=== PATIENT | male | born 1960 | race Caucasian/White ===

== ENCOUNTER → 2019-03-09 14:44 | Outpatient (CLI) | payer BC, SELFPAY ==
[2019-03-09 17:21] LABS: Erythrocyte Sedimentation Rate < 1 mm/hr (0-20)
[2019-03-09 17:32] LABS: CRP < 2.90 mg/L (0.0-3.0); T4 Free Direct 0.94 ng/dL (0.76-1.46); Thyroid Stim Hormone (TSH) 0.91 uIU/mL (0.358-3.74)
== END ==
PROVIDERS: Family Provider Family Medicine; PCP Family Medicine; Visit Provider Family Medicine
DX: M13.0 Polyarthritis, unspecified (principal); F32.9 Major depressive disorder, single episode, unspecified
CPT/HCPCS: 36415; 84439; 84443; 85652; 86140

== ENCOUNTER → 2019-03-12 07:19 | Outpatient (CLI) | payer BC, SELFPAY ==
--- NOTE | 2019-03-12 07:24 | RAD_ITS ---
STUDY: X-RAY - CERVICAL SPINE REASON FOR EXAM: Male, 58 years old. Neck pain and stiffness. TECHNIQUE: 5 view(s) of the cervical spine were obtained including oblique views. COMPARISON: None FINDINGS: Normal anterior atlantoaxial articulation. Normal odontoid process. There is straightening of the normal cervical lordosis. Mild degree of anterior spondylosis at the C4-C5 C5-C6 levels. Normal disc space heights. Normal visualized intervertebral neuroforamina. There are atherosclerotic vascular calcifications of the right carotid artery. RAD/Cerv Spine 4 or 5 Views IMPRESSION: Straightening of the normal cervical lordosis. Mild degree of degenerative changes. Electronically Signed: Antony Whitfield, at 14:42 EDT , Service support ,
== END ==
PROVIDERS: Family Provider Family Medicine; PCP Family Medicine; Referring Provider Family Medicine; Visit Provider Family Medicine
DX: M43.02 Spondylolysis, cervical region (principal)
CPT/HCPCS: 72050

== ENCOUNTER 2019-03-14 14:56 | Emergency (ER) | payer BC, SELFPAY ==
[2019-03-14 14:57] VITALS: BP 125/80; PULSE 57; RESP 16; TEMP 36.5; O2SAT 97; BMI 20.2
--- NOTE | 2019-03-14 15:25 | ED.VISSUMM ---
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 Patient states since Friday he awoke Friday morning with pain in his posterior lower neck he has since developed some tingling in his left. He saw his primary care physician's office they started him on Zoloft and Celebrex and prednisone. He denies any weakness in his hand. He is never had neck problems or neck surgery Physical Examination: Well-appearing middle-aged male. Vital signs are stable afebrile. He is in no distress. H EENT 1 neck pain but not reproducible at the base of his neck. No significant toney-cervical or thoracic soft tissue tenderness. No muscle spasm. He has full flexion extension of his neck and full rotation. Lungs clear to auscultation. Heart regular rhythm no murmur. Chest wall nontender. Abdomen soft nontender. Extremities moves all 4. Normal motor strength. He describes tingling in his fingertips of his left hand. Strong radial pulse. 5 bulk delivery driver strength. No muscular wasting or atrophy. Neurologically he is awake and alert. Subjective tingling in his left hand. Test Results: None Emergency Department Course and Treatment: Patient most likely has a lower cervical disc. He is already on Celebrex and prednisone by his primary care physician's office. I instructed him to follow-up if is not improving he may need an MRI of the cervical spine. He will be written for [facility] for pain. Treatment Plan: [place] 20 no refill. Follow-up in PCPs office for possible MRI of the cervical spine. Disposition: dc Impression: Acute neck pain (rule out inflamed cervical disc) This note was generated with [employer] dictation software. It may contain incorrect words, spelling, and punctuation that were not noted in review of the chart prior to signing ED Disposition - Plan for ED Patient: Referrals: Lam Munoz [Primary Care Provider] -
[2019-03-14] MEDS: HYDROcodone Bitartrate/Apap 5/325 Tablet PO (15:30)
[2019-03-14 15:31] VITALS: RESP 16
--- NOTE | 2019-03-14 15:33 | DCINST.ED_ITS ---
ED Disposition - Plan for ED Patient: Disposition: Home or Assisted Living Instructions: NECK PAIN, No Trauma Prescriptions: Hydrocodone Bitart/Apap 5-325 [Thompson 5MG-325MG] 1 tab PO Q4H PRN PRN #20 tab PRN Reason: Pain Prescription Printed Referrals: Lam Munoz [Primary Care Provider] - As soon as possible Additional Instructions: Continue current medications. My concern is this is a cervical disc that is inflamed. If not improving or if this is getting worse you may need an MRI. Follow-up with your doctors office.
== END 2019-03-14 16:08 | disposition home or self-care (01) ==
LOC: ED 15:51
PROVIDERS: Emergency Provider Emergency Medicine; Family Provider Family Medicine; PCP Family Medicine
DX: M54.2 Cervicalgia (principal); M50.90 Cervical disc disorder, unspecified, unspecified cervical region; M46.96 Unspecified inflammatory spondylopathy, lumbar region
CPT/HCPCS: 99282

== ENCOUNTER → 2019-03-29 10:07 | Outpatient (CLI) | payer BC, SELFPAY ==
[2019-03-29 09:51] VITALS: BMI 20.2
--- NOTE | 2019-03-29 10:10 | RAD_ITS ---
STUDY: X-RAY - LEFT SHOULDER REASON FOR EXAM: Shoulder pain. TECHNIQUE: 4 view(s) of the shoulder. COMPARISON: None. FINDINGS: Normal glenohumeral articulation. There is mild acromioclavicular arthrosis. Normal acromion. Normal humeral head and visualized proximal humerus. The soft tissue structures are unremarkable. Normal visualized pulmonary apex. RAD/Shoulder min 2 Views IMPRESSION: Mild acromioclavicular arthrosis. Electronically Signed: Felipe Diamond MD at 13:08 EDT Tel , Service support ,
== END ==
PROVIDERS: Family Provider Family Medicine; PCP Family Medicine; Referring Provider Physician Assistant; Visit Provider Physician Assistant
DX: S49.92XA Unspecified injury of left shoulder and upper arm, initial encounter (principal)
CPT/HCPCS: 73030

== ENCOUNTER 2019-04-16 13:30 | Outpatient (RCR) | payer BC, SELFPAY ==
--- NOTE | 2019-03-17 15:23 | HP.PTEVAL ---
Patient's Visit Information MIMI REGAN is a 58 year old M referred to Physical Therapy by Lam Munoz MD with a diagnosis of spondylosis. Date of Evaluation: 03/17/19 Physical Therapist: CLAUDIA Ndiaye - Visit Plan Frequency: 2x /Week Duration: 6 Weeks Plan: 2X/ week for 4-6 weeks for centralization of symptoms, postural exercises with HEP and modalities as needed. - Subjective Findings: Pt reports that he woke up one morning about 9 days ago and he had neck and L arm pain. Pt is R handed. He was given oxy by the ER which does not touch it and muscle relaxor by his Dr. He did have an x-ray but it did not show anything. Pt is R handed and is off work right now. He reports that he is not able to find a comfortable position and is in a lot of pain. He has pain on the L side of his neck, down to his L shoulder and tingling and numbness in his fingers. He is not sleeping at night and can not lay down due to the pain. He feels that he has less pain when he is up walking around. Pt reports that he sleeps on the couch arm rest with a pillow. 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 C'spine AROM: flex 50%, ext 25%, SB B 75%, Rot B 75%. UE AROM: full. UE MMT: R shld flex 4+/5 and L 4-/5, R shld abd 4+/5 and L 4-/5, R ER 4+/5 and L 3+/5 and R IR 4+/5 and L 4/5. Pt is able to do a chin tuck but it increases his pain down his arm in sitting. In supine the pt is able to do a chin tunck with a towel under his head, the pain is less but not by much. Took the pt's head into extrememe flexion and slowly lowered his head to lesser amount of flexion.... seemed to help reduce the pain a little. As soon as the pt sat up, the pain came back down the L shoulder and arm. Observation: scapular muscle wasting??? - Goals Goal 1:: HEP Goal Time Frame: 4-6 Weeks Goal 2:: Decrease L shoulder, neck and arm pain to 3/10 with ADL's Goal Time Frame: 4-6 Weeks Goal 3:: Be able to lye down at night and sleep at night for at least part of the night. Goal Time Frame: 4-6 Weeks Goal 4:: Increase L shoulder strength by 1/2 muscle grade ( at time of the eval: UE MMT: R shld flex 4+/5 and L 4-/5, R shld abd 4+/5 and L 4-/5, R ER 4+/5 and L 3+/5 and R IR 4+/5 a).nd L 4/5 Goal Time Frame: 4-6 Weeks - Rehabilitation Potential Rehabilitation Potential: Good - Anticipated Interventions Patient/Client Instruction: Educate patient on: Condition, Plan of Care For the Purpose of:: To decrease pain, To decrease swelling/inflammation, To increase ROM, To improve nutrient delivery to tissue, To improve muscle performance and motor function, To improve ability to perform ADL's, To increase tolerance to activity/condition/position, To improve performance and independence with ADL's, To decrease level of supervision to perform tasks, To improve ability of physical actions for home/community/work/leisure, To improve health of tissue, To decrease soft tissue restriction, To increase flexibility/ROM Therapeutic Exercise to Include: Strength training, Postural training, Flexibilty training, Passive ROM, Active ROM, Scapular Strength/Stabilization For the Purpose of:: To decrease pain, To decrease swelling/inflammation, To increase ROM, To improve nutrient delivery to tissue, To improve muscle performance and motor function, To improve ability to perform ADL's, To increase tolerance to activity/condition/position, To improve performance and independence with ADL's, To improve health of tissue, To decrease soft tissue restriction, To increase flexibility/ROM Manual Therapy Techniques to Include: Mobilization, Passive ROM, Soft tissue mobilization For the Purpose of:: To decrease pain, To increase ROM, To improve nutrient delivery to tissue, To improve muscle performance and motor function, To improve ability to perform ADL's, To increase tolerance to activity/condition/position IF ES: Yes Cryotherapy (ice pack, ice massage): Yes Thermo therapy (hot pack): Yes Ultrasound (thermal/non thermal): Yes For the Purpose of:: To decrease pain, To decrease swelling/inflammation, To improve nutrient delivery to tissue Thank you for the opportunity to evaluate your patient. For Medicare and Medicare HMO plans, please review the plan of care and approve it. It will need to be FAXED BACK to us at [phone] for Medicare purposes. For Medicare only, by signing this I certify the plan of care. Please let me know if there are questions or concerns regarding this plan of care. Physician Signature: Date:
--- NOTE | 2019-04-16 13:50 | HP.PTDCSUM ---
HP - PT D/C Summary It has been my pleasure to treat MIMI REGAN under orders from Lam Munoz MD, for the diagnosis of spondylosis for a total of 7 visit(s). Discharge Date: 04/16/19 Please see the following information for a summary of their discharge status. - Subjective Subjective: Pt is no better. He is doing a little better with sleeping. Pt then reports that pain is 30-40% better maybe. He sees Dr Montemayor next week. He wants an MRI. He can only sleep with pain meds. Pt feels every bump in the car and can not travel very far because of the pain. - Pain neck pain Pain Intensity (Out of 10): 9 L arm pain Pain Intensity (Out of 10): 9 - Overall Improvement % Improvement: 40 - Objective Objective/Function: UE MMT: remains the same. He is only able to lye down for short period sof time. Not sleeping well. C-spine AROM: UE AROM: famktey10%, Ext 75%, R SB 50% and L 75%, Rotation R 1005 and L 75% - Goals Goal 1:: HEP Goal Progress: Goal Met Goal 2:: Decrease L shoulder, neck and arm pain to 3/10 with ADL's Goal Progress: Not Progressing Goal 3:: Be able to lye down at night and sleep at night for at least part of the night. Goal Progress: Progressing Goal 4:: Increase L shoulder strength by 1/2 muscle grade ( at time of the eval: UE MMT: R shld flex 4+/5 and L 4-/5, R shld abd 4+/5 and L 4-/5, R ER 4+/5 and L 3+/5 and R IR 4+/5 a).nd L 4/5 Goal Progress: Not Progressing - Plan Plan: DC PT. Physician assessment/ Dr Montemayor vs MRI - D/C Information Discharge Comments: DC PT to physician If there are questions or concerns regarding this patient's physical therapy, please feel free to call me at [phone]. Thank you for the referral of this patient. Sincerely, Monique العلي, MPT
== END 2019-04-16 19:00 | disposition home or self-care (01) ==
LOC: PT 13:30
PROVIDERS: Family Provider Family Medicine; PCP Family Medicine; Visit Provider Family Medicine
DX: M43.02 Spondylolysis, cervical region (principal)
CPT/HCPCS: 97014; 97035; 97110; 97140; 97162; 97530; G0283

== ENCOUNTER → 2019-05-04 10:36 | Outpatient (CLI) | payer BC, SELFPAY ==
[2019-04-09 08:07] VITALS: BMI 20.2
--- NOTE | 2019-05-04 10:57 | RAD_ITS ---
STUDY: X-RAY - ORBITS REASON FOR EXAM: Male, 59 years old. This study is being performed as a clearance examination for exclusion of orbital metal, prior to the performance of an MRI examination. TECHNIQUE: 2 view(s) of the orbits were obtained. COMPARISON: None. FINDINGS: Normal bilateral orbits without a metallic orbital foreign body. Normal visualized facial bones. Normal paranasal sinuses. The soft tissue structures are unremarkable. RAD/Orbits for Foreign Body IMPRESSION: No demonstrated metallic orbital foreign body. The patient is cleared for an MRI examination. Electronically Signed: Antony Whitfield, at 11:13 EDT , Service support ,
--- NOTE | 2019-05-04 11:30 | MRI_ITS ---
STUDY: MRI CERVICAL SPINE WITHOUT CONTRAST REASON FOR EXAM: Male, 59 years old. Neck pain radiating to left arm TECHNIQUE: Standardized fat and water weighted pulse sequences were obtained in the sagittal and axial planes. COMPARISON: Cervical spine March 12, 2019 FINDINGS: Normal foramen magnum and brainstem-cervical cord junction. Normal craniovertebral junction. Normal anterior atlantoaxial articulation. Normal odontoid process. Decreased cervical lordosis. Normal vertebral bodies and posterior osseous elements. C2-3: Normal endplates. Normal disc height, signal and morphology. Normal central canal and intervertebral neural foramina. C3-4: Normal endplates. Normal disc height, signal and small central/left paracentral disc protrusion. There is mild narrowing of the central canal and impingement upon the ventral surface of the cord. Normal bilateral neuroforamina. C4-5: Normal endplates. Normal disc height, signal and small central disc protrusion mildly narrowing the central canal and impinging upon the cord. Normal bilateral neuroforamina C5-6: Normal endplates. Normal disc height, signal and minor left paracentral/posterolateral disc protrusion. Normal central canal and minor left neural foraminal encroachment. C6-7: Normal endplates. Normal disc height, signal and minor annular bulge with large left posterolateral disc extrusion with superior migration of the disc fragment narrowing the spinal canal on the left and severely narrowing the left nerve root foramen entry zone C7-T1: Normal endplates. Normal disc height, signal and morphology. Normal central canal and intervertebral neural foramina. Normal cervical cord. Normal visualized soft tissue structures. MRI/Spine Cervical (Routine) IMPRESSION: No evidence for acute fractures fixation. Multilevel spinal stenosis secondary to disc disease most severe on the left at C6-7 and to a lesser extent C5-6 Electronically Signed: Herberth Solomon MD at 18:44 EDT , Service support ,
== END ==
PROVIDERS: Family Provider Family Medicine; PCP Family Medicine; Referring Provider Anesthesiology Pain Medicine; Visit Provider Anesthesiology Pain Medicine
DX: M54.9 Dorsalgia, unspecified (principal); M79.603 Pain in arm, unspecified
CPT/HCPCS: 70030; 72141

== ENCOUNTER 2019-06-09 09:39 | Outpatient (RCR) | payer BC, SELFPAY ==
[2019-04-09 08:07] VITALS: BMI 20.2
--- NOTE | 2019-06-09 14:27 | HP.OTFCE_ITS ---
HP OT Functional Capacity Eval - Task Lift Floor (Occasional 1-33% of Day): 60lb Floor (Frequent 34-66% of Day): 30lb Floor (Constant 67-100% of Day): 12lb Floor PDL: Medium Knee (Occasional 1-33% of Day): 60lb Knee (Frequent 34-66% of Day): 30lb Knee (Constant 67-100% of Day): 12lb Knee PDL: Medium Waist (Occasional 1-33% of Day): 60lb Waist (Frequent 34-66% of Day): 30lb Waist (Constant 67-100% of Day): 12lb Waist PDL: Medium Shoulder (Occasional 1-33% of Day): 50lb Shoulder (Frequent 34-66% of Day): 25lb Shoulder (Constant 67-100% of Day): 10lb Shoulder PDL: Medium Overhead (Occasional 1-33% of Day): 30lb Overhead (Frequent 34-66% of Day): 15lb Overhead (Constant 67-100% of Day): Negligible Overhead PDL: Light Comments: 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 - Work Activity/Posture Bending: Frequent Ability (34-66% of day) Squatting: Frequent Ability (34-66% of day) Kneeling: Frequent Ability (34-66% of day) Reaching out: Constant Ability (67-100% of day) Reaching up: Constant Ability (67-100% of day) Sitting: Constant Ability (67-100% of day) Walking: Constant Ability (67-100% of day) Standing: Constant Ability (67-100% of day) - Reference Duration Sedentary Sedentary Light Light Light Medium Medium Medium Heavy Very Heavy Heavy Occasional (0-33% of day) Frequent (34-66% of day) Constant (67-100% of day) 10 # Negligible Negligible 15 # 8 # Negligible 20 # 10# Negli. 35 # 18 # 7 # 50 # 25 # 10 # 75 # 100 # >100 # 38 # 50 # >50 # 15 # 20 # >20 # - Patient Information Height: 5 ft 6 in Weight:: 61.235 kg Hand Dominance: Right - Medical History Medical History Including Restrictions: Pt reports the following PMHx: R broken leg 2014 from accident, back pain, neck pain, arthritis, leg pain, arm pain, injections in cervical spine, lower back, L shoulder. - Diagnoses Diagnoses: Pt reports the following PMHx: R broken leg 2015 from accident, back pain, neck pain, arthritis, leg pain, arm pain, injections in cervical spine, lower back, L shoulder. - Symptoms Symptoms: Pt reports the followng symptoms: lower back aching, under arm pain L arm, mild ache, numbness L 4 digits fingertips 2-5. - Pain Pain: Pt states pain: lower back pain 5-10 pending on movement, left arm 1-3 pain aching. 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 - ADLS ADLS: Pt lives in mobile home, lives w/ spouse. Pt has cat able to care for independently. Pt independent with BADLs/IADLs. Pt drives. Pt has std walker and crutches available but doesn't use it. Pt has middle school director available but doesn't use it. Tub/shower with HHS. Std toilet seats. Sleeps on couch. Pt gets groceries and carries them into house independently. Pt reports cLeaning out shed and doing okay with that, mows independently with no difficulties. - Physical Examination ROM: BUE WFL, BLE WFL Strength: BUE 4/5 BLE 4/5 Right Picture Frame Maker Strength Average: 66.66 Left Picture Frame Maker Strength Average: 78.33 Right Lateral Pinch Average: 12.66 Left Lateral Pinch Average: 11.00 Right Tripod Pinch Average: 11.66 Left Tripod Pinch Average: 13.33 Sensation: Pt states numbness L finger tips 2-5. Monofilament 2.83 L hand. Fine Motor: Pt states no difficulty with fine motor skills Balance: Pt states no falls or loss of balance. Pt demo good righting reactions and no loss of balance when tested. - Non Material Handling Activities Bending: Pt able to bend down to floor reaching with R hand. 1x, 10x, 10x fast. Squatting: Pt able to complete full squats w/o upper body support 1x, 10x, 10x fast. Kneeling: Pt able to complete kneels using L and R legs to kneel with R arm support on desk 1x, 10x, 10x fast. Reaching out/up: Pt able to reach up and out to left and right sides 1x, 10x, 10x fast. Walkin min walk test completed no c/o pain, no rest break needed. Standing: Pt able to stand for several minutes at a time w/o seated rest break. Sitting: Pt able to sit for 20 min beginning of evaluation w/o diffiuclty or rodrigues ving to move around in chair for increased comfort. Climbing Stairs: Completed flight of 10 steps reciprocal movement not holding onto handrails. No loss of balance noted. - Dynamic Occasional Lifting Capacity Floor Lift: 60lb max Knee Lift: 60lb max Waist Lift: 60lb max Shoulder Lift: 50lb max Overhead Lift: 30lb max Carryinlb, 20ft and 60lb 20ft, states he thinks he could maybe do 70lb but doesn't want to push it. 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
== END 2019-06-09 19:00 | disposition home or self-care (01) ==
LOC: OT 09:39
PROVIDERS: Family Provider Family Medicine; PCP Family Medicine; Referring Provider Anesthesiology Pain Medicine; Visit Provider Anesthesiology Pain Medicine
DX: M54.9 Dorsalgia, unspecified (principal); M54.2 Cervicalgia; M79.606 Pain in leg, unspecified; M79.603 Pain in arm, unspecified
CPT/HCPCS: 97165; 97166; 97167

== ENCOUNTER → 2019-07-22 09:53 | Outpatient (CLI) | payer BC, SELFPAY ==
[2019-03-29 09:51] VITALS: BMI 20.2
[2019-04-09 08:07] VITALS: BMI 20.2
--- NOTE | 2019-07-22 18:12 | NEURO_ITS ---
NCS and/or EMG Patient Report HPI: Patient is a 59-year-old male who presented with the complaints of the left hand numbness from 2nd-5th digits. Patient sometimes have difficulty gripping things. Patient does not have a history of diabetes Physical Exam: Decreased sensation to light touch in the left hand fingers, especially in 2nd- 5th finger around tips. No tenderness of the left wrist noted. Findings: 1. Normal nerve conduction studies of the left upper extremity. 1. Normal needle examination of the left upper extremity. Impression: 1. Normal EMG/NCS of the left upper extremity. Recommendation: Agree correlation and appropriate work-up was recommended.
== END ==
PROVIDERS: Family Provider Family Medicine; PCP Family Medicine; Referring Provider Physician Assistant; Visit Provider Physician Assistant
DX: G54.0 Brachial plexus disorders (principal)
CPT/HCPCS: 95886; 95909

== ENCOUNTER 2021-09-12 11:40 | Outpatient (CLI) | payer BC, SELFPAY ==
--- NOTE | 2021-09-12 13:36 | NEURO ---
NCS and/or EMG Patient Report Ordering Doctor: Herberth Granados DATE OF SERVICE: 09/12/21 Indication: Approximately two year history of numbness affecting digits 2-4 of the left hand. No clear associated weakness. History of mechanical neck pain, but no current radicular symptoms. Findings: Nerve conduction studies were performed in the left upper extremity. The left median motor study recording the abductor pollicis brevis showed a normal amplitude, normal distal latency and normal conduction velocity. The left ulnar motor study recording the abductor digiti minimi showed a normal amplitude, normal distal latency and normal conduction velocity. No conduction block or focal slowing was present across the elbow. The left median sensory response recording digit two showed a normal amplitude, latency and conduction velocity. The left ulnar sensory response recording digit five showed a normal amplitude, latency and conduction velocity. The left radial sensory response recording over the extensor snuff box showed a normal amplitude, latency and conduction velocity. Left median ulnar lumbrical / interosseous motor latencies showed no significant difference. Needle EMG of the left upper extremity and cervical paraspinal muscles was performed. No denervation was seen in any muscle. No quiet recording field was obtained in the paraspinals. The triceps revealed motor units which were large amplitude and long duration with normal recruitment. The flexor carpi radialis revealed motor units which were borderline large with normal recruitment. All other examined motor unit morphology, activation and recruitment patterns were normal. Impression: This is a mildly abnormal study. There is electrophysiologic evidence suggestive of a mild, chronic, left C7 radiculopathy. There is no active denervation to suggest ongoing axonal loss. In addition, there was no electrophysiologic evidence of a superimposed median or ulnar entrapment neuropathy in the left upper extremity. Ozzie Calderon D.O. Multi Select Codes Neurology Neurology Interp Codes: 35696-62 Musc test done w/n test comp (interp) and 52637-37 Nrv cndj test 7-8 studies (interp)
== END 2021-09-12 23:59 | disposition short-term general hospital (02) ==
LOC: PSN 11:43
PROVIDERS: PCP Family Medicine; Referring Provider Orthopaedic Surgery; Visit Provider Orthopaedic Surgery
DX: R20.2 Paresthesia of skin (principal)
CPT/HCPCS: 95886; 95910

== ENCOUNTER 2021-11-08 05:54 | Inpatient (IN) | payer BC, SELFPAY ==
--- NOTE | 2021-10-30 09:06 | RAD_ITS ---
STUDY: X-RAY CHEST REASON FOR EXAM: Male, 61 years old. Preop for back surgery TECHNIQUE: PA and lateral views of the chest. COMPARISON: None. FINDINGS: The lungs are clear and expanded. There is no demonstrated pleural abnormality. Normal size heart. Normal mediastinum and joel. Normal visualized pulmonary arteries. Normal visualized aortic arch and descending thoracic aorta. Normal visualized thoracic spine. Normal visualized ribs, clavicles, and shoulders. There is no demonstrated abnormality of the visualized soft tissue structures of the upper abdomen. RAD/Chest PA and Lateral IMPRESSION: Normal x-ray examination of the chest. Electronically Signed: Fer Shearer MD at 17:01 EST ,
--- NOTE | 2021-10-30 09:09 | EKG12_ITS ---
Test Reason : PRE OP Blood Pressure : / mmHG Vent. Rate : 056 BPM Atrial Rate : 056 BPM P-R Int : 144 ms QRS Dur : 088 ms QT Int : 416 ms P-R-T Axes : 043 040 040 degrees QTc Int : 401 ms Sinus bradycardia Otherwise normal ECG Confirmed by JEN OVIEDO, TRAV ([id number]), senior technical editor TIFF YO ([id number]) on 11/01/2021 1:17:05 PM Referred By: CASIE Confirmed By:TRAV LI MD
[2021-10-30 10:49] LABS: Absolute Lymphocyte Count 1.33 X10^3/uL (0.83-4.51); Absolute Neutrophil Count 2.1 X10^3/uL (2.0-7.7); Basophil# 0.03 X10^3/uL; Basophil% 0.8 % (0-1); Eosinophil# 0.06 X10^3/uL; Eosinophils% 1.5 % (0-5); Hematocrit 44.6 % (40-54); Hemoglobin 14.7 g/dL (13.0-16.5); Lymphocyte # 1.33 X10^3/ul (0.83-4.51); Lymphocyte % 33.9 % (19-41); Mean Corpuscular Hgb 30.2 pg (27.0-32.0); Mean Corpuscular Volume 91.6 fL (80-94); Mean Platelet Vol. 10.5 fl (6.2-12.0); Monocyte# 0.42 X10^3/uL; Monocyte% 10.7 % (0-10); NRBC Flagged by Analyzer 0 % (0-5); Neutrophil # 2.07 X10^3/uL (2.7-7.7); Neutrophil % 52.8 % (47-70); Platelet Count 171 K/mm3 (150-450); RBC Distribution Width CV 12.6 % (11.6-14.6); RBC Distribution Width SD 42.4 fl (35.1-43.9); Red Blood Count 4.87 M/mm3 (4.6-6.2); White Blood Count 3.9 K/mm3 (4.4-11.0)
[2021-10-30 10:51] LABS: International Normalized Ratio 1.1; Prothrombin Time (Protime)PT. 13.1 SECONDS (11.7-14.9)
[2021-10-30 10:52] LABS: Partial Thromboplast Time 28.3 Seconds (24.1-36.2)
[2021-10-30 11:01] LABS: Hemoglobin A1c 5.1 % (3.8-5.6)
[2021-10-30 11:09] LABS: Anion Gap 2 (5-15); BUN 23 mg/dL (7-18); BUN/Creat Ratio 27.6 RATIO (10-20); Calcium,Total 9.1 mg/dL (8.5-10.1); Chloride 105 mmol/L (98-107); Creatinine, Serum 0.83 mg/dL (0.70-1.30); EST Glomerular Filtration Rate 100 mL/min (>60); Est Glom Filt Rate - Afr Amer 121 mL/min (>60); Glucose 87 mg/dL (74-106); Potassium 3.9 mmol/L (3.5-5.1); Sodium Level 139 mmol/L (136-145)
[2021-11-08] VITALS (13 sets, daily range): BP systolic 108–148; BP diastolic 62–95; PULSE 57–68; RESP 16–18; TEMP 35.8–37; O2SAT 98–100; BMI 22.0; BMI 21.3
[2021-11-08] MEDS: Lactated Ringers 1,000 ML 15 ML IV ×3 (06:41→12:00)
--- NOTE | 2021-11-08 07:13 | DS.PCM_ITS ---
Providers Date of Admission: 11/08/21 Primary Care Physician: Lam Munoz Reason For Visit: LUMBAR 5- SACRAL 1 POSTERIOR LUMBAR INTERBODY FUSI Diagnosis Discharge Diagnosis (1) Lumbar stenosis: Status: Acute Code(s): M48.061 - Spinal stenosis, lumbar region without neurogenic claudication Medications at Discharge Home Medications omeprazole 10 mg capsule,delayed release 20 mg PO DAILY 08/23/19 gabapentin 100 mg PO DAILY 10/26/21 hydrocodone-acetaminophen 1 tab PO Q6H 7 Days #28 tab 11/08/21 Hospital Course Operations - (L5-S1 posterior lumbar interbody fusion, decompression, posterior spinal fusion with instrumentation, use of allograft) Summary of Care Provided Minutes Spent on Discharge: 15 Hospital Course: The patient is a 61-year-old male who underwent L5-S1 posterior lumbar interbody fusion, decompression, posterior spinal fusion with instrumentation, use of allograft on 11/08/2021. He was subsequently admitted. The hospitalist was consulted for medical management. The patient progressed well. His pain was well controlled and he was mobilizing well. No significant medical issues were reported. His drain was pulled on postoperative day 2 and he was subsequently discharged home on 11/10/21 to follow-up with Dr. Granados in 3 weeks Physical Exam Const alert, oriented x3 and no apparent distress General Appearance: cooperative, comfortable and well kempt HEENT head/scalp atraumatic Eyes EOMs intact bilaterally and conjunctivae normal Neck full ROM General: normal visual inspection Chest inspection of chest normal Resp normal respiratory effort and normal air movement Cardio regular rate and regular rhythm Peripheral Pulses: pulses 2+ throughout GI soft to palpation, non-tender and non-distended Back/Spine Back/Spine Narrative: Dressing clean dry and intact. Incision well approximated with interrupted sutures in place. No tenderness erythema drainage or fluctuance Cervical Spine: cervical ROM normal Thoracic Spine / Upper Back: normal to inspection Lumbar Spine / Lower Back: normal to inspection Extremity normal to inspection, full ROM, normal capillary refill, no clubbing, cyanosis or edema and no calf tenderness Peripheral Pulses: Yes pulses 2+ throughout Skin no rashes or lesions noted General Skin Exam: no breakdown Neuro oriented x3, CN's II-XII intact bilaterally, moves all extremities, no focal motor deficits, no sensory deficits noted and deep tendon reflexes 2+ bilaterally Motor Exam: strength 5/5 throughout and muscle tone normal throughout Weight / BMI Weight Weight: 136 lb 10.986 oz Body Mass Index (BMI) 22.0 ABG / Lab / Microbiology Data Result Diagrams: 10/30/21 09:26 10/30/21 09:26 Microbiology: Microbiology 11/07/21 13:10 Interface Orders SARS-CoV-2 Antigen (Rapid) - Final D/C Instructions Discharge Diet: No restrictions Discharge Activity: - (See discharge instructions) Lifting Restricted to (Lbs): 5 Call your doctor if your incision/area has: Continuous Slow Oozing, Sudden Increased Bleeding, Increased Pain/ Swelling, Increased Redness, Foul Smelling Discharge and Swelling at the incision site Call your doctor if you observe: Fever of 101 or Higher, Coldness, Increased Pain, Numbness or Tingling, Change in Color, Inability to urinate, Inability to have a bowel movement, Using more than 1 pad per hour, Shortness of breath, Dizziness, Fainting spells, Swelling in the ankles, Chest pain, Prolonged hiccupping, Increased palpitations (irregular heartbeat), Calf discomfort and Uncontrolled pain Change Dressing in: Daily Cleanse incision/area with: Do not get Incision Wet and Keep Dressing Clean & Dry Additional Dressing/Incision Instructions: Daily dry dressing changes with iodine to incision Additional Instructions: See attached discharge instructions Please Follow Up With: Darwin When: 3 weeks Meaningful Use Info Meaningful Use Diagnoses (Choose all that apply): None applicable Discharge Plan Admission Admit Date/Time: 11/08/21 05:54 Attending Provider: Bhargav Alexandre Primary Care Provider: Lam Munoz Consulting Providers: Katerin Sullivan ; Rohan Silva Instructions Additional Instructions / Restrictions: 1. During your procedure, you received sedation through your IV. Please follow these instructions for the next 24 hours: Do not drive a motor vehicle, do not drink any alcoholic beverages, and do not sign any legal documents or make personal or business decisions. A responsible adult should stay with you at least 6 hours after the procedure. 2. Keep your surgical site/incision clean and the dressing dry and intact. You may use an ice pack at the surgical site to reduce any swelling or discomfort. 3. Monitor the incision site for any signs or symptoms of infection. Watch for redness, excessive swelling or drainage, or continued pain at the incision site after 3 days. Contact your physician immediately for a fever, chills or a temperature of 101.5? F or greater. 4. Take your medication exactly as prescribed by your physician. Do not attempt to wean yourself off any of your medications even though your pain is improving. This process needs to be carefully monitored by your doctor. Take any an tibiotics prescribed exactly as directed and until they are gone. 5. Avoid stretching, bending, pulling, twisting or any sudden movements. Do not bend or twist at the waist. 6. No lifting greater than 5 pounds. 7. Do not operate a motor vehicle, equipment or a power tool while taking pain medication 8. Do not have any manipulation done by a chiropractor or any other physician without first consulting with the surgeon 9. Please contact our office if you are even scheduled for a CT scan or an MRI. 10. Please call us if you have any questions, problems or concerns. Follow-up with Dr. Granados in 3 weeks Discharge Orders/Prescriptions Prescriptions: New hydrocodone-acetaminophen 5-325 mg tablet 1 tab PO Q6H 7 Days Qty: 28 RF: 0 Continued omeprazole 10 mg capsule,delayed release(DR/EC) 20 mg PO DAILY RF: 0 gabapentin 100 mg Tablet 100 mg PO DAILY RF: 0 Discontinued celecoxib 200 MG capsule 200 mg PO DAILY RF: 0 Other Ambulatory Orders: 12 Lead EKG (Routine) Timeframe: 20211030 Location: None Selected Ordered By: Dr. Herberth Granados Referrals / Follow Up: Herberth Granados DO [STAFF PHYSICIAN] - Lam Munoz [Primary Care Provider] -
--- NOTE | 2021-11-08 07:13 | PCM.OPRPT ---
Problems Associated Problem List Diagnoses (1) Lumbar stenosis: Report of Operation Date of Procedure: 11/08/21 Pre-Operative Diagnosis: 1. Lumbar stenosis, L5-S1 with spondylosis 2. Lumbar degenerative disc disease, L5-S1 Post-Operative Diagnosis: 1. Lumbar stenosis, L5-S1 with spondylosis 2. Lumbar degenerative disc disease, L5-S1 Surgery/Procedure Performed:: 1. L5-S1 posterior lumbar interbody fusion 2. Insertion of intervertebral biomechanical device x1 3. Structural allograft for spinal fusion 4. L5 bilateral laminectomies, foraminotomies, facetectomies, decompression of bilateral L5 nerve roots 5. S1 bilateral laminectomies, foraminotomies, facetectomies, decompression of bilateral S1 nerve roots 6. L5-S1 posterior lateral fusion 7. Pedicle screw fixation 8. Local autograft for spinal fusion 9. Neuro monitoring bilateral upper and bilateral lower extremities Description of Surgical Findings:: The patient is a 61-year-old male with intractable back and leg pain. Image studies confirm the above diagnoses. He has failed conservative treatment to include medication, physical therapy and injections. The patient opted for operative intervention understanding the risks to include but not limited to infection, bleeding, damage to nerves arteries and veins, possibility of spinal fluid leak, nonunion, hardware failure, continued pain, need for further surgery, deep vein thrombosis, pulmonary embolism, heart attack, risk of stroke or The patient was identified in the preoperative holding area. There he received preoperative IV antibiotics, Ancef, and was then transferred to the operative suite. Once in the operative suite after general endotracheal anesthesia was established, the patient was transferred to the [place] operating table in the prone position. All bony prominences were padded accordingly. The lumbar spine was prepped and draped in a standard surgical fashion. Bear hugger's were not turned on until the drapes were placed and sealed with Ioban. A midline incision was made and taken down to the lumbodorsal fascia. The fascia was divided and subperiosteal dissection was taken down to the level of the transverse processes and sacral ala of L5-S1. Deep retractors were placed. A bone scalpel was used to perform cuts in the bilateral lamina, and then a series of rongeurs and Kerrisons were used removing the spinous process and lamina at L5. Then facetectomies of greater than 50% were performed as well as foraminotomies decompressing the bilateral L5 and S1 nerve roots. Given the severity of the stenosis I needed to perform wide bilateral laminectomies and near complete facetectomies in order to decompress the neural elements thus creating instability necessitating fusion. The dura and nerve roots were identified and retracted medially and a 15 blade scalpel was used to perform an annulotomy on the right side at L5-S1. An endplate elevator, curettes, and pituitaries were utilized to remove disc material. The endplates were prepared with a rasp. An appropriate sized intervertebral peek cage device measuring 9 mm was packed with morselized cancellous allograft and impacted into position completing the posterior lumbar interbody fusion at L5-S1. I then proceeded with pedicle screw fixation. Starting points were found at the junction of the superior articular process and transverse process of L5 and sacral ala of S1. A power bur was used for the starting points. Pedicle probes were placed bilaterally and then 6.5 x 35 mm screws were placed bilaterally at L5 and 6.5 x 30 screws were placed bilaterally at S1. The screws were tested with intraoperative neurophysiologic monitoring and tested within normal limits. Connecting rods were then applied. I then proceeded with the posterior lateral fusion. This was accomplished by decorticating the transverse processes bilaterally at L5 and the sacral ala bilaterally at S1. This decorticated bone was then bridged with local allograft from the decompression as well as morselized cancellous allograft therefore completing the posterior lateral fusion at L5-S1. The incision was then thoroughly irrigated. Tisseel was placed over the dura as a hemostatic agent. A deep drain was placed. The fascia was closed with #1 Vicryl, subcutaneous with 2-0 Vicryl and skin with 2-0 nylon. A sterile dressing was applied with 4 x 4's ABD and tape. Sponge instrument needle counts were correct at the end of the case. Neurophysiologic monitoring was maintained at baseline throughout the duration of the case. The patient was extubated and taken to the PACU without incident. Surgeon: Herberth Granados Type of Anesthesia: General Specimen's removed: None Drains: Hemovac Estimated Blood Loss (mL): 100 cc Fluids Replaced: 2000 cc Grafts/Implants Used: Unified spine, Talos, Vitae OS, DBM by ostial biologic solutions Complications None Admit VTE Documentation VTE Present on Admission: No
--- NOTE | 2021-11-08 07:13 | PCM.PN.ORT ---
Subjective Subjective The patient was seen and examined postoperatively in the PACU. He is resting comfortably. His pain is controlled. He denies any complaints including numbness tingling or weakness Objective Data Objective Data Vital Signs: Vital Signs Temp Pulse Resp BP Pulse Ox 98.6 F 57 L 16 143/82 H 100 11/08/21 06:31 11/08/21 06:31 11/08/21 06:31 11/08/21 06:31 11/08/21 06:31 Oxygen Delivery Method Room Air Weight: 136 lb 10.986 oz Body Mass Index (BMI) 22.0 Lab / Micro Data Result Diagrams: 10/30/21 09:26 10/30/21 09:26 Micro: Microbiology 11/07/21 13:10 Interface Orders SARS-CoV-2 Antigen (Rapid) - Final Physical Exam Const alert, oriented x3 and no apparent distress General Appearance: cooperative and comfortable HEENT head/scalp atraumatic Eyes EOMs intact bilaterally and conjunctivae normal Neck full ROM Chest inspection of chest normal Resp normal respiratory effort and normal air movement Cardio regular rate, regular rhythm and peripheral pulses 2+ throughout GI soft to palpation, non-tender and non-distended Back/Spine Back/Spine Narrative: Dressing clean dry and intact, drain in place and functioning Cervical Spine: cervical ROM normal Thoracic Spine / Upper Back: normal to inspection Lumbar Spine / Lower Back: normal to inspection Extremity normal to inspection, full ROM, normal capillary refill, no clubbing, cyanosis or edema and no calf tenderness Skin no rashes or lesions noted General Skin Exam: no breakdown Neuro oriented x3, CN's II-XII intact bilaterally, moves all extremities, no focal motor deficits, no sensory deficits noted and deep tendon reflexes 2+ bilaterally Motor Exam: strength 5/5 throughout and muscle tone normal throughout Assessment & Plan Assessment/Plan (1) Lumbar stenosis: PLAN: Okay to admit to floor See orders Keep dressing clean dry and intact. Reinforce as needed Back brace at all times while out of bed. Pain control and mobilization as tolerated
[2021-11-08] MEDS: Cefazolin 2 GM in 0.9% Normal Saline 100 ML IV (07:35)
--- NOTE | 2021-11-08 07:45 | RAD_ITS ---
STUDY: X-RAY - LUMBAR SPINE REASON FOR EXAM: Male, 61 years old. L5-S1 POSTERIOR FUSION TECHNIQUE: 5 limited intraoperative view(s) of the lumbar spine were obtained. COMPARISON: None FINDINGS: 5 limited intraoperative C-arm films were performed as the patient has undergone posterior pedicle fusion surgery at L5 and S1. No intraoperative complications are noted. RAD/Lumbar Spine 2 or 3 Views IMPRESSION: No intraoperative complications during L5/S1 posterior fusion surgery Electronically Signed: Fer Shearer MD at 11:17 EST ,
[2021-11-08] MEDS: THROMBIN (RECOMBINANT) 20,000 UNIT VIAL 20000 UNIT TOPICAL (08:30)
[2021-11-08] MEDS: Heparin 10,000 UNITS/10 ML Vial 10000 UNITS (08:30)
[2021-11-08] MEDS: Bupivacaine 0.25% 30 ML Vial (11:16)
[2021-11-08] MEDS: 0.9% Saline Lock 10 ML Syringe IV (14:21)
[2021-11-08] MEDS: Morphine 4 MG/ML Syringe IV (14:21)
--- NOTE | 2021-11-08 14:56 | CON.PCM.HO_ITS ---
Assessment & Plan Assessment/Plan (1) Lumbar stenosis: PLAN: #Lumbar spinal stenosis s/p L5-S1 posterior lumbar interbody fusion * today is POD 0 * management as per primary team * PT/OT consult. Fall precautions * incentive spirometry use * pain management as per primary team * #GERD: on PPI DVT prophylaxis: as per primary team Thank you for the courtesy of the consult. We will continue to follow with you. HPI Consult Data Date of Consult: 11/08/21 HPI Narrative HPI Narrative: MIMI REGAN, is a 61 M with a PMH as outlined who was admitted by spine surgery for surgery for lumbar stenosis. He hadL5-S1 posterior lumbar interbody fusion on 11/08/2021. Hospitalist service was consulted for medical management. Patient seen after surgery in his room. He had no active complaints and his pain was well controlled. He denied any fever, chills, nausea, vomiting or diarrhea. Review of systems was otherwise negative. [facility] Medical History (Updated 11/08/21 @ 07:[address] Herberth Granados, DO) Anxiety Back pain Former smoker Gastric reflux History of arthritis History of broken collarbone History of COVID-19 History of edema History of steroid therapy History of ulceration Injury of back Leg cramps Wears dentures Wears glasses Home Medications omeprazole 10 mg capsule,delayed release 20 mg PO DAILY 08/23/19 [History Last Taken 11/08/21 04:30] gabapentin 100 mg PO DAILY 10/26/21 [History Last Taken 11/02/21] hydrocodone-acetaminophen 1 tab PO Q6H 7 Days #28 tab 11/08/21 [Rx Last Taken Unknown] Allergy/AdvReac Type Severity Reaction Status Date / Time oxycodone [From Percocet] AdvReac HALLUCINATI Verified 10/26/21 13:16 ON Surgical History (Updated 10/26/21 @ 13:29 by Joan Barron) History of mandibular surgery History of open reduction and internal fixation (ORIF) procedure Hx of colonoscopy Social History (Updated 08/24/19 @ 06:32 by Dean RAMOS, PA) Smoking Status: Former smoker alcohol intake: never ROS Constitutional Constitutional: Denies anorexia, chills, fatigue, fever(s), malaise or weakness Eyes Eyes: Denies change in vision ENT HEENT: Denies abnormal hearing, hearing loss or nasal congestion Cardiovascular Cardiovascular: Denies chest pain, dyspnea on exertion, edema, lightheadedness, orthopnea, palpitations, rapid heart rate or syncope Respiratory/Chest Respiratory/Chest: Denies cough, dyspnea, productive cough, shortness of breath at rest, shortness of breath with exertion or wheezing Gastrointestinal Gastrointestinal: Denies abdominal pain, constipation, diarrhea, nausea or vomiting Genitourinary Genitourinary: Denies burning urination Musculoskeletal Musculoskeletal: Denies arthralgias Neurologic Neurologic: Denies confusion, dizziness or focal weakness Psychiatric Psychiatric: Denies anxiety or depression Endocrine Endocrinology: Denies change in body appearance Physical Exam Const alert, oriented x3 and healthy appearing General Appearance: cooperative HEENT normocephalic, head/scalp atraumatic, hearing grossly normal bilaterally and moist oral mucous membranes Eyes PERRL, EOMs intact bilaterally and conjunctivae normal Neck no lymphadenopathy and supple Resp normal respiratory effort, no retractions, no use of accessory muscles and clear to auscultation bilaterally Cardio regular rate, regular rhythm, S1 normal heart sound, S2 normal heart sound and no murmurs GI normal to inspection, nondistended, normoactive bowel sounds, soft to palpation, non-tender and non-distended Extremity normal to inspection and no clubbing, cyanosis or edema Skin Skin Narrative: intact dressing over surgical site Neuro oriented x3, CN's II-XII intact bilaterally and moves all extremities Sensorium / Orientation: awake and alert Psych affect normal Lab / Micro Data Result Diagrams: 10/30/21 09:26 10/30/21 09:26 Micro: Microbiology 11/07/21 13:10 Interface Orders SARS-CoV-2 Antigen (Rapid) - Final Radiology Impression Lumbar Spine X-Ray 11/08/21 07:45 IMPRESSION: No intraoperative complications during L5/S1 posterior fusion surgery Electronically Signed: Fer Shearer MD at 11:17 EST , Charges/Coding Visit Charges Office Visits / Consults: [id number] IP Consult L3
[2021-11-08] MEDS: Cefazolin 1 GM/50 ML BAG IV ×2 (15:02→22:28)
[2021-11-08] MEDS: Lactated Ringers 1,000 ML 100 ML IV (15:06)
[2021-11-09] VITALS (14 sets, daily range): BP systolic 94–108; BP diastolic 47–72; PULSE 39–87; RESP 16–18; TEMP 36.4–37.5; O2SAT 95–100
[2021-11-09] MEDS: Morphine 4 MG/ML Syringe IV (01:07)
--- NOTE | 2021-11-09 06:25 | PN.ORTHO_ITS ---
Subjective Subjective The patient was seen and examined postoperative day 1. He is lying in bed resting comfortably. He is having some mild postop soreness but denies any other complaints including numbness tingling or weakness. His East catheter is still in place. His drain is in place and functioning and put out about 100 cc per shift for the last 2 shifts. He has not yet been out of bed with physical therapy. Objective Data Objective Data Vital Signs: Vital Signs Temp Pulse Resp BP Pulse Ox 98.4 F 53 L 16 94/50 L 96 11/09/21 04:00 11/09/21 04:06 11/09/21 04:00 11/09/21 04:00 11/09/21 04:00 Oxygen Delivery Method Room Air Weight: 132 lb 4.438 oz Body Mass Index (BMI) 21.3 Intake & Output: Intake and Output for Last 24 Hours 11/07/21 11/08/21 11/09/21 23:59 23:59 23:59 Intake Total 3442.08 / 3442.08 95.25 / 95.25 Output Total 695 / 945 750 / 750 Balance 2747.08 / 2497.08 -654.75 / -654.75 Lab / Micro Data Result Diagrams: 10/30/21 09:26 10/30/21 09:26 Micro: Microbiology 11/07/21 13:10 Interface Orders SARS-CoV-2 Antigen (Rapid) - Final Radiography Diagnostic Testing: Radiology Impression Lumbar Spine X-Ray 11/08/21 07:45 IMPRESSION: No intraoperative complications during L5/S1 posterior fusion surgery Electronically Signed: Fer Shearer MD at 11:17 EST , Physical Exam Const alert, oriented x3 and no apparent distress General Appearance: cooperative, comfortable and well kempt HEENT head/scalp atraumatic Eyes EOMs intact bilaterally and conjunctivae normal Neck full ROM General: normal visual inspection Chest inspection of chest normal Resp normal respiratory effort and normal air movement Cardio regular rate, regular rhythm and peripheral pulses 2+ throughout Peripheral Pulses: pulses 2+ throughout GI soft to palpation, non-tender and non-distended Back/Spine Back/Spine Narrative: Dressing clean dry and intact. Drain in place and functioning. Cervical Spine: cervical ROM normal Thoracic Spine / Upper Back: normal to inspection Lumbar Spine / Lower Back: normal to inspection Extremity normal to inspection, full ROM, normal capillary refill, no clubbing, cyanosis or edema and no calf tenderness Peripheral Pulses: Yes pulses 2+ throughout Skin no rashes or lesions noted General Skin Exam: no breakdown Neuro oriented x3, CN's II-XII intact bilaterally, moves all extremities, no focal motor deficits, no sensory deficits noted and deep tendon reflexes 2+ bilaterall y Motor Exam: strength 5/5 throughout and muscle tone normal throughout Assessment & Plan Assessment/Plan (1) Lumbar stenosis: PLAN: The patient is doing well. Continue with pain control and mo bilization. Back brace on when out of bed. Okay to remove East. Continue antibiotics while drain is in place. Reinforce dressing as needed. Dr. Granados will perform first dressing change when he removes the drain. Discharge planning, likely home tomorrow
--- NOTE | 2021-11-09 06:35 | NURSING ---
Physician saw pt this morning, going to leave drain in another day, okay to remove raza, have therapy get OOB, back brace on while sitting or oob and restart ancef while he has the drain in place.
--- NOTE | 2021-11-09 07:21 | PCM.PN.HOSP ---
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 Granados. The hospitalist service was consulted to assist with management of patient medical comorbidities Patient had syncopal episode. The monitor did show bradycardia with heart rate dropping to the high 30s. Subsequent EKG obtained did not show any evidence of ischemia. Plan is to monitor patient continuously on telemetry. As part of his management ordered TSH 2D echo and serial cardiac enzymes. And consultation placed to cardiology for symptomatic bradycardia Objective Data Objective Data Vital Signs: Vital Signs Temp Pulse Resp BP Pulse Ox 98.4 F 53 L 16 94/50 L 96 11/09/21 04:00 11/09/21 04:06 11/09/21 04:00 11/09/21 04:00 11/09/21 04:00 Oxygen Delivery Method Room Air Weight: 60 kg Body Mass Index (BMI) 21.3 Intake & Output: Intake and Output for Last 24 Hours 11/07/21 11/08/21 11/09/21 23:59 23:59 23:59 Intake Total 3442.08 / 3442.08 95.25 / 95.25 Output Total 695 / 945 855 / 855 Balance 2747.08 / 2497.08 -759.75 / -759.75 Lab / Micro Data Result Diagrams: 10/30/21 09:26 10/30/21 09:26 Micro: Microbiology 11/07/21 13:10 Interface Orders SARS-CoV-2 Antigen (Rapid) - Final Radiography Diagnostic Testing: Radiology Impression Lumbar Spine X-Ray 11/08/21 07:45 IMPRESSION: No intraoperative complications during L5/S1 posterior fusion surgery Electronically Signed: Fer Shearer MD at 11:17 EST , Physical Exam Narrative GENERAL: cooperative HEENT: Atraumatic; EYES; Anicteric, Normal Conjunctiva NECK; supple, normal thyroid, RESPIRATORY: Diminished to auscultation CARDIOVASCULAR: Regular S1 S2, GI: soft, normoactive bowel sounds, : No Renal angle tenderness; EXTREMITIES: No edema, no clubbing, MUSCULOSKELETAL: no muscle wasting NEURO: Awake; no lateralizing signs. 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 Granados. The hospitalist service was consulted to assist with management of patient medical comorbidities 1. Lumbar spinal stenosis and degenerative joint disease involving the lumbar spine ?Status post L5-S1 posterior lumbar interbody fusion by Dr. Lopez on 11/08/2021. Patient postoperative orders regarding PT OT, DVT prophylaxis as well as pain management as per primary service 2. Syncopal episode - The monitor did show bradycardia with heart rate dropping to the high 30s. Subsequent EKG obtained did not show any evidence of ischemia. Plan is to monitor patient continuously on telemetry. As part of his management ordered TSH 2D echo and serial cardiac enzymes. And consultation placed to cardiology for symptomatic bradycardia 3. GERD ?On PPI 4. DVT prophylaxis ?Defer to primary admitting service. Charges/Coding Visit Charges Inpatient E&M: 23311 Subs Hosp L3
--- NOTE | 2021-11-09 08:59 | NURSING ---
walking into room- pt sitting up on side of bed states he needs to get back into bed. pt c/o of being nauseated. pt becomes pale, and appears to have syncopal episode. pt unresponsive for less than 15 seconds. another nurse into room, states pt HR on monitor bradycardic in 30's. , assisted to bed. vitals obtained 100/59, pulse 51 currently. pt states he is nauseated, appropriately conversant. will notify .
[2021-11-09] MEDS: 0.9% Saline Lock 10 ML Syringe IV (09:10)
[2021-11-09] MEDS: Ondansetron 4 MG/2 ML Vial IV (09:10)
--- NOTE | 2021-11-09 09:16 | EKG12_ITS ---
Test Reason : BABATUNDE EPISODE Blood Pressure : / mmHG Vent. Rate : 062 BPM Atrial Rate : 062 BPM P-R Int : 130 ms QRS Dur : 070 ms QT Int : 398 ms P-R-T Axes : 075 034 013 degrees QTc Int : 403 ms Normal sinus rhythm Low voltage QRS Borderline ECG When compared with ECG of 30-OCT-2021 09:20, Nonspecific T wave abnormality now evident in Inferior leads Confirmed by JEN OVIEDO, TRAV ([id number]), news copy editor TIFF YO ([id number]) on 11/12/2021 11:22:09 AM Referred By: Herberth Granados Confirmed By:TRAV LI MD
--- NOTE | 2021-11-09 09:18 | NURSING ---
This nurse is aware of pt's syncopal episode this morning. Dr. Alexandre was paged and informed via [facility]. Dr. Alexandre is up on the 3rd floor at this time. Dr. Alexandre looked at a tele monitor strip of patient's. Dr. Alexandre ordered to give 500cc bolus and okayed EKG. Dr. Alexandre also stated that if this happens again where is HR drops below 40 we will consult Cardiology.
[2021-11-09] MEDS: Pantoprazole Sodium 20 MG Tablet PO (09:28)
[2021-11-09] MEDS: Gabapentin 100 MG Capsule PO (09:28)
[2021-11-09] MEDS: oxyCODONE 5 MG Tablet PO ×2 (10:28→21:38)
[2021-11-09] MEDS: Acetaminophen 500 MG Tablet 1000 MG PO ×2 (10:32→16:55)
--- NOTE | 2021-11-09 10:58 | CASEMGMT ---
ELADIO CHURCH Assessment: Face to Face with pt for initial transition planning/care coordination assessment. RN CM introduced self and role at [facility], pt voices understanding and consents to assessment. Pt is A/O x4 and answers all questions appropriately at this time. Pt lying in bed in no distress. Care providers, pharmacy, and demographics verified/updated. Admitting Dx: lumbar 5, sacral 1 posterior lumbar interbody fusion PCP:Alexander Specialists:Darwin, spine surgeon; Christopher, pain mgmt Preferred Pharmacy: [facility] Retail Insurance: [place] Prescription Benefit: yes LW/HPOA: Pt states he has a LW/DPOA. States his DPOA is Rox Nieves, . He is aware that it is not on file at [facility] and he may bring in to be scanned into his chart at any time. LNOK: Rox Nieves, Living Arrangements: Pt lives with in a mobile home with 4 steps to enter with a rail on both sides. Pt reports he is I in ADL's and denies concerns at home. Transportation: Pt drives self and denies concerns with transportation. DME/HHC/SNF: Pt has a tens unit at home,no other AD. Pt denies hx of HHC but has been in [facility] when he broke his leg. Pt states no concerns with going home at time of dc. Pt states no further concerns/needs. CM to follow. Advised pt to ask CM if any further question/concerns/needs arise, voices understanding. Pt Goal:Home Plan: Home, will follow for any AD. PT has not seen pt as of yet.
--- NOTE | 2021-11-09 11:44 | ECHOD_ITS ---
Reason For Study: Syncope Procedure This was a 2D Doppler, Color Flow transthoracic echocardiogram. Patient scanned laying on his right side due to back surgery 11/08/21. The study was technically difficult. Exam performed portable in patient room. Left Ventricle Normal left ventricle. The estimated ejection fraction is 55-60 %. Right Ventricle Mildly dilated right ventricle. Normal systolic function. Atria Normal left atrium. Normal right atrium. Mitral Valve The mitral valve is structurally normal. No prolapse or stenosis seen. No mitral valve insufficiency. Tricuspid Valve Normal tricuspid valve. Mild tricuspid valve insufficiency. Aortic Valve Normal aortic valve. Pulmonic Valve The pulmonic valve is not well visualized. Great Vessels Normal aortic root. Pericardium/Pleural No pericardial effusion. MMode/2D Measurements & Calculations LVIDd: 3.9 cm IVSd: 1.1 cm Ao root diam: 3.3 cm LVIDs: 2.6 cm LVPWd: 1.2 cm RVDd: 3.2 cm FS: 33.2 % LAV(MOD-sp2): 22.4 ml LVAd ap4: 24.1 cm2 LVAd ap2: 22.5 cm2 LVLd ap4: 7.7 cm LVLd ap2: 7.4 cm EDV(MOD-sp4): 63.9 ml EDV(MOD-sp2): 58.0 ml EDV(sp4-el): 63.8 ml EDV(sp2-el): 58.6 ml LVAs ap4: 14.5 cm2 LVAs ap2: 13.1 cm2 LVLs ap4: 6.6 cm LVLs ap2: 6.2 cm ESV(MOD-sp4): 28.7 ml ESV(MOD-sp2): 23.1 ml ESV(sp4-el): 27.0 ml ESV(sp2-el): 23.4 ml EF(MOD-sp4): 55.2 % EF(MOD-sp2): 60.2 % EF(sp4-el): 57.6 % SV(MOD-sp4): 35.3 ml SV(MOD-sp2): 34.9 ml SV(sp4-el): 36.8 ml LA dimension(2D): 2.6 cm Doppler Measurements & Calculations MV E max wiliam: 100.3 cm/sec Lat Peak E' Wiliam: 13.3 cm/sec Med Peak E' Wiliam: 12.9 cm/sec MV A max wiliam: 49.9 cm/sec E/E' lat: 7.6 E/E' med: 7.8 MV E/A: 2.0 Ao V2 max: 115.4 cm/sec LV V1 max: 97.4 cm/sec PA V2 max: 88.1 cm/sec Ao max P.3 mmHg LV V1 max P.8 mmHg TR max wiliam: 237.3 cm/sec TR max P.5 mmHg ECHO/Echo Complete Interpretation Summary The estimated ejection fraction is 55-60 %. Normal LV systolic function Ordering Physician: Bhargav Alexandre Referring Physician: Lam Munoz Performed By: Fina Odom RDCS
[2021-11-09 12:37] LABS: Thyroid Stim Hormone (TSH) 0.72 uIU/mL (0.358-3.74); Troponin-I HS 6 pg/mL (3.0-78.0)
[2021-11-09] MEDS: 0.9% Normal Saline 1,000 ML 150 ML IV ×2 (12:46→20:29)
[2021-11-09 14:01] LABS: Troponin-I HS 6 pg/mL (3.0-78.0)
--- NOTE | 2021-11-09 14:09 | PCM.CONS.C ---
Documented by User: Madina RAMOS PA 11/09/21 16:29 Assessment & Plan Assessment/Plan (1) Syncope: (2) Sinus bradycardia: PLAN: Patient does have a history of sinus bradycardia. He has not had any syncopal events before. EKG did not demonstrate any evidence of ischemia. Would recommend continued telemetry while patient is in the hospital. TSH, cardiac enzymes and echocardiogram are pending. We will also obtain orthostatic blood pressure readings. Patient's syncopal event could have been vasovagal, could have been related to orthostatic blood pressure as his blood pressure was on the lower end this morning. If all tests are negative do not feel that any additional cardiac testing needs to be done. However if he did have any other episodes of syncope would recommend further work-up. HPI Consult Data Date of Consult: 11/09/21 HPI Narrative HPI Narrative: MIMI REGAN, is a 61 M who we were asked to consult for syncope. Patient underwent a lumbar 5 sacral 1 posterior lumbar interbody fusion on 11/08/2021 for lumbar stenosis. While patient was eating breakfast today he went to stand up, he had significant pain in his leg as he was standing, he then was noted to have a syncopal event that was witnessed by the nurse. Nurse noted that his eyes did roll back patient did regain consciousness quickly. Patient does not recall any lightheadedness or dizziness prior just recall significant pain when he went to go stand up. Patient does not have any cardiac history. Prior to him being in the hospital his main issue was his back. He is not had any chest pain, shortness of breath, palpitations. He has never had any syncopal events before. He does not have any lightheadedness or dizziness previous to this. [facility] Medical History Anxiety Back pain Former smoker Gastric reflux History of arthritis History of broken collarbone History of COVID-19 History of edema History of steroid therapy History of ulceration Injury of back Leg cramps Wears dentures Wears glasses Home Medications omeprazole 10 mg capsule,delayed release 20 mg PO DAILY 08/23/19 [History Last Taken 11/08/21 04:30] gabapentin 100 mg PO DAILY 10/26/21 [History Last Taken 11/02/21] hydrocodone-acetaminophen 1 tab PO Q6H 7 Days #28 tab 11/08/21 [Rx Last Taken Unknown] Allergy/AdvReac Type Severity Reaction Status Date / Time oxycodone [From Percocet] AdvReac HALLUCINATI Verified 10/26/21 13:16 ON Surgical History (Updated 10/26/21 @ 13:29 by Joan Barron) History of mandibular surgery History of open reduction and internal fixation (ORIF) procedure Hx of colonoscopy Social History (Updated 08/24/19 @ 06:32 by Dean RAMOS, PA) Smoking Status: Former smoker alcohol intake: never ROS Constitutional Constitutional: Denies body ache(s), fatigue, fever(s) or weakness Eyes Eyes: Denies change in vision, diplopia or eye pain ENT HEENT: Denies abnormal hearing, disequillibrium, dizziness, dysphagia, headache(s) or hearing loss Cardiovascular Cardiovascular: Denies abdominal pain, chest pain, claudication, cyanosis, dizziness, dyspnea at rest, dyspnea on exertion or irregular heart rhythm Respiratory/Chest Respiratory/Chest: Denies dyspnea on exertion or shortness of breath at rest Gastrointestinal Gastrointestinal: Denies abdominal pain, diarrhea or dysphagia Musculoskeletal Musculoskeletal: Reports back pain Physical Exam Const alert, oriented x3, no apparent distress, average body habitus and healthy appearing HEENT normocephalic, head/scalp atraumatic, hearing grossly normal bilaterally, external ears normal, external nose normal, nasal mucous membranes and turbinates normal and moist oral mucous membranes Eyes PERRL, EOMs intact bilaterally, conjunctivae normal and no scleral icterus Neck full ROM, no lymphadenopathy, supple and no JVD Chest inspection of chest normal and palpation of chest normal Resp normal respiratory effort, normal air movement, no use of accessory muscles and clear to auscultation bilaterally Cardio regular rate, regular rhythm, S1 normal heart sound, S2 normal heart sound, no murmurs, no rub, no gallops, no clicks, no JVD and peripheral pulses 2+ throughout GI normal to inspection, nondistended, normoactive bowel sounds, soft to palpation, non-tender and non-distended Extremity normal to inspection, normal capillary refill, no clubbing, cyanosis or edema and no pedal edema Neuro oriented x3, CN's II-XII intact bilaterally and moves all extremities Psych mental status grossly normal Risk Stratification Risk Stratification Applicable: Yes Age >/= 65: No >/= 3 CAD Risk Factors (HTN, HLD, DM, family hx of CAD, or current smoker): No Aspirin Use in the Past 7 Days: No Severe Angina (>/= episodes in 24 hours): No EKG ST Changes >/= 0.5mm: No Positive Cardiac Marker: No BIANCA Risk Stratification Score: 0 BIANCA % Risk: 5% Risk Charges/Coding Visit Charges Office Visits / Consults: 68025 IP Consult L4 Objective Data Vital Signs: Vital Signs Temp Pulse Resp BP Pulse Ox 98.2 F 72 16 98/72 98 11/09/21 12:04 11/09/21 12:04 11/09/21 12:04 11/09/21 12:04 11/09/21 12:04 Oxygen Delivery Method Room Air Weight: 132 lb 4.438 oz Body Mass Index (BMI) 21.3 Intake & Output: Intake and Output for Last 24 Hours 11/07/21 11/08/21 11/09/21 23:59 23:59 23:59 Intake Total 3442.08 / 3442.08 642.25 / 642.25 Output Total 695 / 945 855 / 855 Balance 2747.08 / 2497.08 -212.75 / -212.75 Lab / Micro Data Result Diagrams: 10/30/21 09:26 10/30/21 09:26 Labs: Laboratory Results - last 24 hr 11/09/21 12:04: Troponin I High Sens 6, TSH 0.72 11/09/21 13:32: Troponin I High Sens 6 Cardiology Labs/Tests Rhythm:SB EKG: Sinus Darrion with a HR of 56 ECHO:pending Documented by User: Dr. Rohan Silva MD 11/09/21 17:07 Assessment & Plan Assessment/Plan (1) Syncope: (2) Sinus bradycardia: (3) Lumbar stenosis: PLAN: I independently examined this patient, reviewed the data including the cardiac specialist record of his vital signs blood pressure His current lab, he has a near syncope with the hypertension Symptoms resolved Further evaluation of echocardiogram LV function preserved. I discussed the cardiac care plan recommendation with the patient and nursing staff Further evaluation can be set up as an outpatient if he had further symptoms with [facility] cardiology team/event monitor HPI Consult Data Date of Consult: 11/09/21 HPI Narrative Reason for Consultation: Dizziness with the new syncope, post surgery [facility] Medical History Anxiety Back pain Former smoker Gastric reflux History of arthritis History of broken collarbone History of COVID-19 History of edema History of steroid therapy History of ulceration Injury of back Leg cramps Wears dentures Wears glasses Home Medications omeprazole 10 mg capsule,delayed release 20 mg PO DAILY 08/23/19 [History Last Taken 11/08/21 04:30] gabapentin 100 mg PO DAILY 10/26/21 [History Last Taken 11/02/21] hydrocodone-acetaminophen 1 tab PO Q6H 7 Days #28 tab 11/08/21 [Rx Last Taken Unknown] Allergy/AdvReac Type Severity Reaction Status Date / Time oxycodone [From Percocet] AdvReac HALLUCINATI Verified 10/26/21 13:16 ON Surgical History (Updated 10/26/21 @ 13:29 by Joan Barron) History of mandibular surgery History of open reduction and internal fixation (ORIF) procedure Hx of colonoscopy Social History (Updated 08/24/19 @ 06:32 by Dean RAMOS, PA) Smoking Status: Former smoker alcohol intake: never Lab / Micro Data Result Diagrams: 10/30/21 09:26 10/30/21 09:26
[2021-11-09] MEDS: Cefazolin 1 GM/50 ML BAG IV ×2 (14:15→21:35)
[2021-11-09 18:21] LABS: Troponin-I HS 5 pg/mL (3.0-78.0)
[2021-11-10] VITALS (7 sets, daily range): BP systolic 114–131; BP diastolic 68–72; PULSE 64–79; RESP 18; TEMP 36.7–37.1; O2SAT 94–100
[2021-11-10] MEDS: Acetaminophen 500 MG Tablet 1000 MG PO ×3 (03:03→18:08)
[2021-11-10] MEDS: Cefazolin 1 GM/50 ML BAG IV ×2 (05:31→13:42)
[2021-11-10] MEDS: 0.9% Saline Lock 10 ML Syringe IV (05:31)
[2021-11-10] MEDS: oxyCODONE 5 MG Tablet PO ×2 (05:35→17:16)
--- NOTE | 2021-11-10 07:40 | PN.HOSP_ITS ---
Subjective Subjective Patient seen pain is tolerable. No episodes of the bradycardia patient was seen in consultation by cardiology noted recommendations from Dr. Silva reviewed Objective Data Objective Data Vital Signs: Vital Signs Temp Pulse Resp BP Pulse Ox 98.8 F 68 18 131/68 H 94 11/10/21 03:17 11/10/21 07:00 11/10/21 03:17 11/10/21 03:17 11/10/21 03:17 Oxygen Delivery Method Room Air Weight: 60 kg Body Mass Index (BMI) 21.3 Intake & Output: Intake and Output for Last 24 Hours 11/08/21 11/09/21 11/10/21 23:59 23:59 23:59 Intake Total 3442.08 / 3442.08 2657.25 / 2657.25 885 / 885 Output Total 695 / 945 2040 / 2040 510 / 510 Balance 2747.08 / 2497.08 617.25 / 617.25 375 / 375 Lab / Micro Data Result Diagrams: 10/30/21 09:26 10/30/21 09:26 Labs: Laboratory Results - last 24 hr 11/09/21 12:04: Troponin I High Sens 6, TSH 0.72 11/09/21 13:32: Troponin I High Sens 6 11/09/21 17:30: Troponin I High Sens 5 Micro: Microbiology 11/07/21 13:10 Interface Orders SARS-CoV-2 Antigen (Rapid) - Final Radiography Diagnostic Testing: Radiology Impression Echocardiogram 11/09/21 11:44 Interpretation Summary The estimated ejection fraction is 55-60 %. Normal LV systolic function Ordering Physician: Bhargav Alexandre Referring Physician: Lam Munoz Performed By: Fina Odom RDCS Physical Exam Narrative GENERAL: cooperative HEENT: Atraumatic; EYES; Anicteric, Normal Conjunctiva NECK; supple, normal thyroid, RESPIRATORY: Diminished to auscultation CARDIOVASCULAR: Regular S1 S2, GI: soft, normoactive bowel sounds, : No Renal angle tenderness; EXTREMITIES: No edema, no clubbing, MUSCULOSKELETAL: no muscle wasting NEURO: Awake; no lateralizing signs. 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 Granados. The hospitalist service was consulted to assist with management of patient medical comorbidities 1. Lumbar spinal stenosis and degenerative joint disease involving the lumbar spine ?Status post L5-S1 posterior lumbar interbody fusion by Dr. Lopez on 11/08/2021. Patient postoperative orders regarding PT OT, DVT prophylaxis as well as pain management as per primary service ?11/09/2021;Patient seen pain is tolerable. 2. Syncopal episode - The monitor did show bradycardia with heart rate dropping to the high 30s. Subsequent EKG obtained did not show any evidence of ischemia. Plan is to monitor patient continuously on telemetry. As part of his management ordered TSH 2D echo and serial cardiac enzymes. And consultation placed to cardiology for symptomatic bradycardia -11/09/2021 No episodes of the bradycardia patient was seen in consultation by cardiology noted recommendations from Dr. Silva reviewed 3. GERD ?On PPI 4. DVT prophylaxis ?Defer to primary admitting service. Charges/Coding Visit Charges Inpatient E&M: 11069 Subs Hosp L2
[2021-11-10] MEDS: Gabapentin 100 MG Capsule PO (09:09)
[2021-11-10] MEDS: Pantoprazole Sodium 20 MG Tablet PO (09:09)
== END 2021-11-10 19:35 | disposition home or self-care (01) | DRG 460 ==
LOC: ACINP 09:27 → MS3 13:10
PROVIDERS: Admitting Provider Orthopaedic Surgery; PCP Family Medicine; Referring Provider Orthopaedic Surgery; Visit Provider Internal Medicine
PROC: 0SG00AJ Fusion of Lumbar Vertebral Joint with Interbody Fusion Device, Posterior Approach, Anterior Column, Open Approach (ICD-10-PCS; CPT 22630; principal; 2021-11-08 07:00)
DX: M48.061 Spinal stenosis, lumbar region without neurogenic claudication (principal); K21.9 Gastro-esophageal reflux disease without esophagitis; M47.817 Spondylosis without myelopathy or radiculopathy, lumbosacral region; M51.37 Other intervertebral disc degeneration, lumbosacral region; R00.1 Bradycardia, unspecified; Z87.891 Personal history of nicotine dependence; R55 Syncope and collapse; Z86.16 Personal history of COVID-19
CPT/HCPCS: 36415; 71046; 72100; 76000; 80048; 83036; 84443; 84484; 85025; 85610; 85730; 87426; 93005; 93306; 97162; 97530; 99251; C1713; C9803; J7030; J7040; J7050; J7120; A4216; G0463; J2405

== ENCOUNTER 2021-12-10 13:52 | Outpatient (CLI) | payer BC, SELFPAY ==
--- NOTE | 2021-12-10 14:05 | RAD_ITS ---
STUDY: X-RAY - PELVIS AND RIGHT HIP REASON FOR EXAM: Male, 61 years old. PAIN IN RT HIP Technologist Notes CONSISTENT PAIN X YRS, PAST INJURY X 20 YRS AGO TECHNIQUE: XR Hip Unilateral with Pelvis when performed; 2-3 Views COMPARISON: None. FINDINGS: There is a non-specific bowel gas pattern. Normal visualized soft tissue structures. Lumbar spinal fixation hardware. Normal bilateral iliac wings, sacroiliac joints and visualized sacrum. Normal bilateral superior and inferior pubic rami. Normal pubic symphysis. Normal bilateral ischial tuberosities. Normal visualized femoral head. Normal acetabulum. Normal hip joint. RAD/HIP, UNI W/ Pelvis 2-3 Views IMPRESSION: No acute findings. Electronically Signed: Chance Greenberg MD at 18:06 EDT ,
== END 2021-12-10 23:59 | disposition home or self-care (01) ==
PROVIDERS: PCP Family Medicine; Referring Provider Nurse Practitioner Family; Visit Provider Nurse Practitioner Family
DX: M25.551 Pain in right hip (principal)
CPT/HCPCS: 73502

== ENCOUNTER 2022-02-20 10:30 | Outpatient (RCR) | payer BC, SELFPAY ==
--- NOTE | 2021-12-26 10:46 | HP.PTEVAL_ITS ---
Patient's Visit Information MIMI REGAN is a 61 year old M referred to Physical Therapy by Dr. Herberth Granados DO with a diagnosis of spinal stenosis, disc degeneration s/p fusion 11/08/21. Date of Evaluation: 12/26/21 Physical Therapist: Sae Man, DPT, OCS, CSCS - Visit Plan Frequency: 3x /Week Duration: 4-6 Weeks Plan: 3x/week for 4-6 weeks. 1. rollout and stretch psoas, quad and HS. 2. strengthen core isometrically, LE adn posture also. 3. Gentle LB ROM table. 4. body mechanics lifting, work related education. 5. Ice as needed. - Subjective Had back surgery on 11/08/21 for back fusion due to back pain. had pain for years up to 06/10 without leg symptoms. Surgery helped. He can stand up straighter and doesn't hurt like it used to. pain lately to 7/10 with exertion but 410 now and sometimes not painful. Weather has a lot to do with it. Not doing any exercises but sent for therapy. Was in back brace with walker until recently. F/u with doctor last week and is doing well. Sleep is Ok lately. No pain meds other than tylenol and gabapentin. 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 Basic ADLs doing most home things are Ok right now. Does not usually cook. Activities to get back to include mowing the yard and home chores. Precautions: none. Could not stadn up straight for years prior to surgery. - Pain LBP Pain Intensity (Out of 10): 4 Pain Intensity Range: 0, 7 - Objective Walks stiff in pelvis and slightly hunched over, pelvis rotates BW on each side to avoid hip extension. No antlagia today. Transfers I with UE, steps I reciprocally with UE. Posture is slightly hunched FW and flat lordosis, No brace present todayLB AAROM ext max limited, slight discomfort. flexion max limited and stretching legs, SB mod limited. LE strength 4/5 without myotomal problems. reflexes 2/3 knee and achilles. Sensation LE WNL to gross light touch. Incis ion is healed well and dry, no signs of reness, heat or swelling, minimal scar tissue. - Balance/Special Test Scores Functional Gait Assessment Score: 28 % Disability: 6.6700 Oswestry Low Back Score: 22 - Goals Goal 1:: Pt I appropriate HEp for body mechanics, ROM, stretching and strengthening core Goal Time Frame: 4-6 Weeks Goal 2:: Pt feel pain 0-2/10 at most and manageable Goal Time Frame: 2-4 Weeks Goal 3:: Pt ready to consider return to work Goal Time Frame: 4-6 Weeks Goal 4:: Walk without excessive pelvic movement or deviations Goal Time Frame: 4-6 Weeks Goal 5:: Pt feel 90% back to normal activity Goal Time Frame: 4-6 Weeks Goal 6:: Oswestry score 10 or less Goal Time Frame: 4-6 Weeks - Rehabilitation Potential Physical Therapy Diagnosis: stiffness and gait deviations s/p fusion Rehabilitation Potential: Good - Anticipated Interventions Patient/Client Instruction: Educate patient on: Condition, Plan of Care For the Purpose of:: To decrease pain, To increase ROM, To improve muscle performance and motor function, To increase tolerance to activity/ condition/position, To improve ability of physical actions for home/community/work/leisure, To improve gait and locomotor functions Therapeutic Exercise to Include: Strength training, Neuromotor development, Passive ROM, Active ROM For the Purpose of:: To decrease pain, To increase ROM, To improve muscle performance and motor function, To increase tolerance to activity/condition/position, To improve performance and independence with ADL's, To improve ability of physical actions for home/community/work/leisure Manual Therapy Techniques to Include: Petrissage, Mobilization, Passive ROM, Soft tissue mobilization For the Purpose of:: To decrease pain, To increase ROM, To improve muscle performance and motor function, To increase tolerance to activity/condition/position, To improve ability of physical actions for home/community/work/leisure Cryotherapy (ice pack, ice massage): Yes For the Purpose of:: To decrease pain, To decrease swelling/inflammation Thank you for the opportunity to evaluate your patient. For Medicare and Medicare HMO plans, please review the plan of care and approve it. It will need to be FAXED BACK to us at [phone] for Medicare purposes. For Medicare only, by signing this I certify the plan of care. Please let me know if there are questions or concerns regarding this plan of care. Physician Signature: Date:
--- NOTE | 2022-01-25 14:06 | HP.PTREVAL_ITS ---
Dr. Herberth Granados, DO, It has been my pleasure to treat MIMI REGAN over the last 13 visits for spinal stenosis, disc degeneration s/p fusion 11/08/21. Please see the progress note below for an update on the physical therapy plan of care! Subjective: Somewhat better. Back is a little stronger. Still has to be careful with lifting. On 10# lifting limit, to doctor next week. Pain level this week 3/10 and worse with rain, Worse with activity. Sleeping is fine. Activities at home normal outside of lifting. Still needs to get outside and work and still avoiding lifting alot in the shed as it hurts. HEP: Ball exercises, stretches and roller, strengthening every other day. Has to return to work for the money and works at the [employer]. Needs to return to work. Objective/Function: Slow transfers off table but I. HS and quads still tight. Posture is decent. L/S ext mod limited, flexion min limited, SB min limited and no increased pain. Walking very well with stiffness but corrects with VC. Steps reciprocal without rail Plan Plan: Pt to call after doc visit. Recommend continued therapy for progression of lifting and strength as pt may return to work. Pt will call after f/u with doctor for scheduling or d/c depending on visit. 2-3x/week for 2-4 weeks for gym strength , to teach I program and progression of funciton to lifting and on feet gigi gonzalez. Balance/Gait/Functional tests - Balance/Special Test Scores Functional Gait Assessment Score: 28 % Disability: 6.6700 Oswestry Low Back Score: 17 Goals Goal 1:: Pt I appropriate HEp for body mechanics, ROM, stretching and strengthening core Goal Time Frame: 4-6 Weeks Goal Progress: Goal Met Goal 2:: Pt feel pain 0-2/10 at most and manageable Goal Time Frame: 2-4 Weeks Goal Progress: Progressing Goal 3:: Pt ready to consider return to work Goal Time Frame: 4-6 Weeks Goal Progress: considering. Goal 4:: Walk without excessive pelvic movement or deviations Goal Time Frame: 4-6 Weeks Goal Progress: able Goal 5:: Pt feel 90% back to normal activity Goal Time Frame: 4-6 Weeks Goal Progress: Progressing Goal 6:: Oswestry score 10 or less Goal Time Frame: 4-6 Weeks Goal Progress: Progressing Anticipated Interventions Patient/Client Instruction: Educate patient on: Condition, Plan of Care For the Purpose of:: To decrease pain, To increase ROM, To improve muscle performance and motor function, To increase tolerance to activity/condition/position, To improve ability of physical actions for home/community/work/leisure, To improve gait and locomotor functions Therapeutic Exercise to Include: Strength training, Neuromotor development, Passive ROM, Active ROM For the Purpose of:: To decrease pain, To increase ROM, To improve muscle performance and motor function, To increase tolerance to activity/condition/position, To improve performance and independence with ADL's, To improve ability of physical actions for home/community/work/leisure Manual Therapy Techniques to Include: Petrissage, Mobilization, Passive ROM, Soft tissue mobilization For the Purpose of:: To decrease pain, To increase ROM, To improve muscle performance and motor function, To increase tolerance to activity/condition/position, To improve ability of physical actions for home/community/work/leisure Cryotherapy (ice pack, ice massage): Yes For the Purpose of:: To decrease pain, To decrease swelling/inflammation Please do not hesitate to contact me at [phone] by phone or if you have questions or concerns regarding this new plan of care! Sincerely, Sae Man, DPT, OCS, CSCS
--- NOTE | 2022-02-20 11:13 | HP.PTDCSUM ---
It has been my pleasure to treat MIMI REGAN referred by Dr. Herberth Granados DO, with the diagnosis of spinal stenosis, disc degeneration s/p fusion 11/08/21 for a total of 17 visit(s). Discharge Date: 02/20/22 Please see the following information for a summary of their discharge status. Subjective: Back is feeling stronger. Will return to work Friday. Will get paperwork to be released by doctor. Will be on lightweight roller at that time. Pain 0-3/10 with walking long distances. Mowed yard last week for couple hours without too much problem. 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 Sleep is OK. Ready to be done with therapy. Will join gym . Activities at home pretty normal. LBP Pain Intensity (Out of 10): 2 % Improvement: 90 Objective/Function: AROM L/S still limited mod in extension, good in flexion and min in SB. Walks much more normal. steps reciprocal without rail. Decent body mechanics with squatting. Overall wishes to be done with PT and rady to go back to work subjectively and should do well with a non lifting job avoiding excessive bending. Goal 1:: Pt I appropriate HEp for body mechanics, ROM, stretching and strengthening core Goal Progress: Goal Met Goal 2:: Pt feel pain 0-2/10 at most and manageable Goal Progress: Goal Met Goal 3:: Pt ready to consider return to work Goal Progress: Goal Met Goal 4:: Walk without excessive pelvic movement or deviations Goal Progress: able Goal 5:: Pt feel 90% back to normal activity Goal Progress: Goal Met Goal 6:: Oswestry score 10 or less Goal Progress: Goal Met Plan: d/c, pt to continue strength 3x/week and ROM daily. If there are questions or concerns regarding this patient's physical therapy, please feel free to call me at [phone]. Thank you for the referral of this patient. Sincerely, Sae Man, DPT, OCS, CSCS Balance/Gait/Functional tests - Balance/Special Test Scores Functional Gait Assessment Score: 28 % Disability: 6.6700 Oswestry Low Back Score: 6
== END 2022-02-20 14:37 | disposition home or self-care (01) ==
LOC: PT 10:30
PROVIDERS: PCP Family Medicine; Referring Provider Orthopaedic Surgery; Visit Provider Orthopaedic Surgery
DX: M48.07 Spinal stenosis, lumbosacral region (principal); M47.817 Spondylosis without myelopathy or radiculopathy, lumbosacral region; M51.37 Other intervertebral disc degeneration, lumbosacral region
CPT/HCPCS: 97110; 97162; 97164; 97530

== ENCOUNTER 2022-08-19 09:16 | Day surgery (SDC) | payer BC, SELFPAY ==
--- NOTE | 2022-08-19 09:38 | HP.PCM_ITS ---
HPI - General General Date of Admission: 08/19/22 HPI Narrative MIMI REGAN, is a 62 M who presents for screening colonoscopy. Patient did have a colonoscopy in 2002 negative per patient. Patient has bowel movements almost every other day denies blood. Patient denies any family history of colon cancer. Patient denies any chronic abdominal pain/nausea/vomiting/reflux. PFS Medical History (Updated 08/16/22 @ 12:02 by Joan Barron) Anxiety Back pain Cardiology follow-up encounter Former smoker Gastric reflux History of arthritis History of broken collarbone History of colon polyps History of COVID-19 History of echocardiogram History of steroid therapy History of ulceration Injury of back Leg cramps Wears dentures Wears glasses Home Medications omeprazole 10 mg capsule,delayed release 20 mg PO DAILY GERD 08/23/19 [History Last Taken 11/08/21 04:30] acetaminophen 500 mg tablet (Tylenol Extra Strength) 500 mg PO Q6H PRN Pain 07/09/22 [History Last Taken Unknown] Allergy/AdvReac Type Severity Reaction Status Date / Time oxycodone [From Percocet] AdvReac HALLUCINATI Verified 08/19/22 09:46 ON Surgical History (Updated 08/16/22 @ 12:02 by Joan Barron) History of lumbar fusion History of mandibular surgery History of open reduction and internal fixation (ORIF) procedure Hx of colonoscopy Social History Smoking Status: Former smoker alcohol intake: never Past Medical/Surgical History Planned Operation Planned Operative Procedure/s: CSCOPE OA Previous Hospitalizations/Surgeries HX Hospitalizations: No Any Problems With Anesthesia: No You/Your Family Experience Fever (Hyperthermia) With Anes: No Cholinesterase deficiency: No Cardiovascular Hx Chest Pain within Last 2 months: No Hx Heart Attack: No Hx Hypertension: No Hx Cardiac Surgery/Stents/Etc.: No Respiratory Hx Chronic Obstructive Pulmonary Disease (COPD): No Hx Asthma: No Hx Emphysema: No Hx Sleep Apnea: No Hx Respiratory Tract Infection/Cold (presently): No Do You Snore Loudly (louder than talking or can be heard): No Do You Often Feel Tired/ Fatigued/ Sleepy Dring Daytime?: Yes Has Anyone Observed You Stop Breathing During Sleep?: No Result (for STOP score): Negative Hx Smoking: No Smoking Status: Former smoker Neurological Hx Seizures: No Hx Multiple Sclerosis: No Hx Parkinson's Disease: No Hx Back Injury/Pain: Yes Does patient have nerve stimulator: No Blood Disorder Hx Anemia: No Reproduction : No Genitourinary Hx Dialysis: No Musculoskeletal Hx Arthritis: Yes Hx Rheumatoid Arthritis: No Endocrine Hx Diabetes: No Thyroid Disease: No Psycho/Social Hx Depression: Yes Hx Dementia: No Miscellaneous Hx Cancer: No Recent Exposure to Contagious Disease: No Allergies oxycodone [From Percocet] Adverse Reaction (Verified 08/19/22 09:46) HALLUCINATION Discharge Is Pt Admitted From a Long-Term, or a Custodial: No After D/C, Where Do you Plan to Go: Return Home Physical Exam Const alert, oriented x3 and no apparent distress HEENT normocephalic and head/scalp atraumatic Resp normal respiratory effort Cardio regular rate GI soft to palpation and non-tender; Negative for non-distended Palpation: Negative for guarding Extremity no clubbing, cyanosis or edema Neuro CN's II-XII intact bilaterally Psych mental status grossly normal Assessment & Plan Assessment/Plan (1) Encounter for screening for malignant neoplasm of colon: Surgery Risks - Colonoscopy Risks Include but are not Limited To: Risks include but are not limited to: Bleeding, perforation requiring further surgery, inability to complete colonoscopy requiring barium enema.
[2022-08-19 09:46] VITALS: BP 127/76; PULSE 69; RESP 16; TEMP 36.1; O2SAT 99; BMI 21.0
[2022-08-19] MEDS: Lactated Ringers 1,000 ML 15 ML IV (09:51)
[2022-08-19 11:04] VITALS: BP 127/76; BP 85/67; PULSE 68; RESP 18; TEMP 36.4; O2SAT 97
--- NOTE | 2022-08-19 11:08 | OP.COLON_ITS ---
Patient Name: Wilbur Nieves Procedure Date: 08/19/2022 10:46 AM Date of : 1960 Age: 62 Procedure: Colonoscopy Indications: Screening for colorectal malignant neoplasm Providers: Margarita Corral MD Referring MD: Lam Munoz Medicines: Monitored Anesthesia Care Patient Profile: This is a 62 year old male. Last Colonoscopy: more than 10 years ago. Complications: No immediate complications. Procedure: Pre-Anesthesia Assessment: - Prior to the procedure, a History and Physical was performed, and patient medications and allergies were reviewed. The patient's tolerance of previous anesthesia was also reviewed. The risks and benefits of the procedure and the sedation options and risks were discussed with the patient. All questions were answered, and informed consent was obtained. Prior Anticoagulants: The patient has taken no previous anticoagulant or antiplatelet agents. ASA Grade Assessment: Per anesthesia. After reviewing the risks and benefits, the patient was deemed in satisfactory condition to undergo the procedure. After I obtained informed consent, the scope was passed under direct vision. Throughout the procedure, the patient's blood pressure, pulse, and oxygen saturations were monitored continuously. The colonoscope was introduced through the anus with the intention of advancing to the ascending colon. The scope was advanced to the sigmoid colon before the procedure was aborted. Medications were given. The patient tolerated the procedure well. The quality of the bowel preparation was poor. Scope In: 10:53:05 AM Scope Out: 10:57:39 AM Total Procedure Duration Time 0 hours 4 minutes 34 seconds Findings: The perianal and digital rectal examinations were normal. A large amount of stool was found in the rectum and in the sigmoid colon, precluding visualization. Impression: - Preparation of the colon was poor. - Stool in the rectum and in the sigmoid colon. - No specimens collected. Recommendation: - Discharge patient to home. - Resume previous diet. - Continue present medications. - Repeat colonoscopy at appointment to be scheduled because the bowel preparation was poor. Procedure Code(s): --- Professional --- G0121, 53,PT, Colorectal cancer screening; colonoscopy on individual not meeting criteria for high risk Diagnosis Code(s): --- Professional --- Z12.11, Encounter for screening for malignant neoplasm of colon CPT copyright 2017 [employer]. All rights reserved. The codes documented in this report are preliminary and upon auditing coder review may be revised to meet current compliance requirements. MD Margarita Garcia MD 08/19/2022 11:08:33 AM This report has been signed electronically. Number of Addenda: 0 Note Initiated On: 08/19/2022 10:46 AM
--- NOTE | 2022-08-19 11:08 | OP.CCLET_ITS ---
08/19/2022 Lam Munoz Re : Colonoscopy procedure for Wilbur Nieves Dear Alexander This procedure was performed on Friday, August 19, 2022. My impressions and recommendations are as follows: Impressions : - Preparation of the colon was poor. - Stool in the rectum and in the sigmoid colon. - No specimens collected. Recommendations : - Discharge patient to home. - Resume previous diet. - Continue present medications. - Repeat colonoscopy at appointment to be scheduled because the bowel preparation was poor. My findings are described in the full procedure note, which is enclosed. If I can be of further assistance, please feel free to contact me at Doctor phone number(s): , Work: . Sincerely, MD Margarita Garcia MD 08/19/2022 11:08:33 AM This report has been signed electronically.
[2022-08-19 11:10] VITALS: BP 127/76; BP 95/71; PULSE 68; RESP 16; O2SAT 97
[2022-08-19 11:15] VITALS: BP 102/76; BP 127/76; PULSE 67; RESP 16; O2SAT 97
[2022-08-19 11:20] VITALS: BP 111/82; BP 127/76; PULSE 63; RESP 16; TEMP 36.1; O2SAT 98
[2022-08-19 11:47] VITALS: BP 127/76
--- NOTE | 2022-08-19 11:47 | SUR.PHASEII ---
Dr. Corral calls with specific instructions for repeat scope scheduled for tomorrow. Instructions written out and given to patient.
== END 2022-08-19 11:59 | disposition home or self-care (01) ==
LOC: EN 09:18 → AC 09:19
PROVIDERS: PCP Family Medicine; Referring Provider Family Medicine; Visit Provider Surgery
PROC: 0DJD8ZZ Inspection of Lower Intestinal Tract, Via Natural or Artificial Opening Endoscopic (ICD-10-PCS; CPT 45378; principal; 2022-08-19 10:25)
DX: Z12.11 Encounter for screening for malignant neoplasm of colon (principal); Z86.16 Personal history of COVID-19; Z87.891 Personal history of nicotine dependence
CPT/HCPCS: G0121; J7120; J2405

== ENCOUNTER 2022-08-20 10:56 | Day surgery (SDC) | payer BC, SELFPAY ==
[2022-08-20] VITALS (10 sets, daily range): BP systolic 117–145; BP diastolic 76–89; PULSE 55–88; RESP 16; TEMP 36.1–36.3; O2SAT 98–100; BMI 21.0
[2022-08-20] MEDS: Lactated Ringers 1,000 ML 15 ML IV (11:39)
--- NOTE | 2022-08-20 12:51 | HP.PCM_ITS ---
History and Physical Date of Admission: 08/20/22 08/19/22937 MR#:? [id number] Acct: [id number] Name: MIMI REGAN Rep #: [id number] :? 1960 62 From:? Margarita Corral MD PCP: Lam Munoz ? Status: [facility] [place] Location: [place] [address] HPI - General General Date of Admission: 08/19/22 HPI Narrative MIMI REGAN, is a 62 M who presents for screening colonoscopy.? Patient did have a colonoscopy in 2002 negative per patient.? Patient has bowel movements almost every other day denies blood.? Patient denies any family history of colon cancer.? Patient denies any chronic abdominal pain/nausea/vomiting/reflux. PFSH Medical History?(Updated 08/16/22 @ 12:02 by Joan Barron) Anxiety Back pain Cardiology follow-up encounter Former smoker Gastric reflux History of arthritis History of broken collarbone History of colon polyps History of COVID-19 History of echocardiogram History of steroid therapy History of ulceration Injury of back Leg cramps Wears dentures Wears glasses Home Medications omeprazole 10 mg capsule,delayed release 20 mg PO DAILY GERD 08/23/19 [History Last Taken 11/08/21 04:30] acetaminophen 500 mg tablet (Tylenol Extra Strength) 500 mg PO Q6H PRN Pain 07/09/22 [History Last Taken Unknown] Allergy/AdvReac Type Severity Reaction Status Date / Time oxycodone [From Percocet] AdvReac ? HALLUCINATI Verified 08/19/22 09:46 ? ? ? ON ? ? Surgical History?(Updated 08/16/22 @ 12:02 by Joan Barron) History of lumbar fusion History of mandibular surgery History of open reduction and internal fixation (ORIF) procedure Hx of colonoscopy Social History? Smoking Status:? Former smoker alcohol intake:? never Past Medical/Surgical History Planned Operation Planned Operative Procedure/s: CSCOPE OA Previous Hospitalizations/Surgeries HX Hospitalizations: No Any Problems With Anesthesia: No You/Your Family Experience Fever (Hyperthermia) With Anes: No Cholinesterase deficiency: No Cardiovascular Hx Chest Pain within Last 2 months: No Hx Heart Attack: No Hx Hypertension: No Hx Cardiac Surgery/Stents/Etc.: No Respiratory Hx Chronic Obstructive Pulmonary Disease (COPD): No Hx Asthma: No Hx Emphysema: No Hx Sleep Apnea: No Hx Respiratory Tract Infection/Cold (presently): No Do You Snore Loudly (louder than talking or can be heard): No Do You Often Feel Tired/ Fatigued/ Sleepy Dring Daytime?: Yes Has Anyone Observed You Stop Breathing During Sleep?: No Result (for STOP score): Negative Hx Smoking: No Smoking Status: Former smoker Neurological Hx Seizures: No Hx Multiple Sclerosis: No Hx Parkinson's Disease: No Hx Back Injury/Pain: Yes Does patient have nerve stimulator: No Blood Disorder Hx Anemia: No Reproduction : No Genitourinary Hx Dialysis: No Musculoskeletal Hx Arthritis: Yes Hx Rheumatoid Arthritis: No Endocrine Hx Diabetes: No Thyroid Disease: No Psycho/Social Hx Depression: Yes Hx Dementia: No Miscellaneous Hx Cancer: No Recent Exposure to Contagious Disease: No Allergies oxycodone [From Percocet] Adverse Reaction (Verified 08/19/22 09:46) HALLUCINATION Discharge Is Pt Admitted From a Prison, or a Custodial: No After D/C, Where Do you Plan to Go: Return Home Physical Exam Const alert, oriented x3 and no apparent distress HEENT normocephalic and head/scalp atraumatic Resp normal respiratory effort Cardio regular rate GI soft to palpation and non-tender; Negative for non-distended Palpation: Negative for guarding Extremity no clubbing, cyanosis or edema Neuro CN's II-XII intact bilaterally Psych mental status grossly normal Assessment & Plan Assessment/Plan (1) Encounter for screening for malignant neoplasm of colon: Surgery Risks - Colonoscopy Risks Include but are not Limited To: Risks include but are not limited to: Bleeding, perforation requiring further surgery, inability to complete colonoscopy requiring barium enema. 08/19/22 1042 <Electronically signed by Magrarita Corral MD>
--- NOTE | 2022-08-20 13:15 | COLBX_PTH ---
PATIENT: MIMI REGAN LOC: [facility] [place] U#:[id number] AGE/SX: 62/M ROOM: RE08/20/[address]: Dr. Margarita Corral MD : 1960 BED: DIS: 08/20/2022 SPEC #: [id number] RECD: 08/20/22 17:59 STATUS: DELMA REQ #: [id number] HALLIE: 08/20/22 13:[address]: Margarita Corral DEPT: SURGICAL PATHOLOGY RECD BY: Brittani Trent ENTERED: 08/21/22 09:01 SP TYPE: COLON BX OTHR DR: Lam Munoz Tissues: A - Cecum, NOS B - Transverse colon C - COLON BIOPSY Procedures: Surgery Specimen Level IV HEADER OPERATION: Colonoscopy (MAC), polypectomy PRE-OP DIAGNOSIS: Screening TISSUE SUBMITTED: A ? Large polyp adjacent to ileocecal valve, B ? Proximal transverse polyp, C ? Hepatic flexure polyp MICROSCOPIC DIAGNOSIS A. Large polyp adjacent to ileocecal valve, polypectomy: Fragments of tubular adenoma. B. Proximal transverse colon polyp, polypectomy: Fragments of tubular adenoma. C. Hepatic flexure polyp, polypectomy: Fragments of colonic mucosa, no pathologic diagnosis. SENG:morena 08/22/2022 MICROSCOPIC DESCRIPTION Slides are reviewed. GROSS DESCRIPTION A - Received in fixative is one container labeled with the patient's name and designated large polyp adjacent to the ileocecal valve. The specimen consists of multiple irregular fragments of light urbina soft tissue that in aggregate measure 3 x 2.5 x 0.3 cm. The specimen is totally submitted in one cassette. B - Received in fixative is one container labeled with the patient's name and designated proximal transverse polyp. The specimen consists of multiple irregular fragments of light urbina soft tissue that in aggregate measure 1.5 x 1 x 0.3 cm. The specimen is totally submitted in one cassette. C - Received in fixative is one container labeled with the patient's name and designated hepatic flexure polyp. The specimen consists of two irregular fragments of light urbina soft tissue that in aggregate measure 0.6 x 0.3 x 0.1 cm. The specimen is totally submitted in one cassette. / SENG:morena 08/21/2022 TC:1 CPT: 95605 x3
--- NOTE | 2022-08-20 15:18 | OP.COLON_ITS ---
Patient Name: Wilbur Nieves Procedure Date: 08/20/2022 1:31 PM Date of : 1960 Age: 62 Procedure: Colonoscopy Indications: Screening for colorectal malignant neoplasm Providers: Margarita Corral MD Referring MD: Margarita Corral MD Medicines: Monitored Anesthesia Care Patient Profile: This is a 62 year old male. Last Colonoscopy: more than 10 years ago. Complications: No immediate complications. Procedure: Pre-Anesthesia Assessment: - Prior to the procedure, a History and Physical was performed, and patient medications and allergies were reviewed. The patient's tolerance of previous anesthesia was also reviewed. The risks and benefits of the procedure and the sedation options and risks were discussed with the patient. All questions were answered, and informed consent was obtained. Prior Anticoagulants: The patient has taken no previous anticoagulant or antiplatelet agents. ASA Grade Assessment: Per anesthesia. After reviewing the risks and benefits, the patient was deemed in satisfactory condition to undergo the procedure. After I obtained informed consent, the scope was passed under direct vision. Throughout the procedure, the patient's blood pressure, pulse, and oxygen saturations were monitored continuously. The Colonoscope was introduced through the anus and advanced to the cecum, identified by the appendiceal orifice, ileocecal valve and palpation. The colonoscopy was technically difficult and complex due to flat/long polyp near ileocecal valve along fold. [Solution]. The quality of the bowel preparation was good. Scope In: 1:35:13 PM Scope Withdrawal Time 1 hour 4 minutes 47 seconds Scope Out: 2:51:40 PM Total Procedure Duration Time 1 hour 16 minutes 27 seconds Findings: The perianal and digital rectal examinations were normal. Two semi-pedunculated polyps were found in the proximal transverse colon. The polyps were 4 mm in size. These polyps were removed with a hot snare. Resection and retrieval were complete. A less than 5 mm polyp was found in the hepatic flexure. The polyp was sessile. The polyp was removed with a cold biopsy forceps. Resection and retrieval were complete. A 20 to 30 mm polyp was found in the ileocecal valve. The polyp was semi-sessile. Polypectomy was attempted, initially using a piecemeal technique with a hot snare. Polyp resection was incomplete with this device. This intervention then required a different device and polypectomy technique. The polyp was removed with a hot snare. Polyp resection was incomplete. The resected tissue was retrieved. Biopsies were taken with a cold forceps for histology. The exam was otherwise without abnormality. Impression: - Two 4 mm polyps in the proximal transverse colon, removed with a hot snare. Resected and retrieved. - One less than 5 mm polyp at the hepatic flexure, removed with a cold biopsy forceps. Resected and retrieved. - One 20 to 30 mm polyp at the ileocecal valve, removed with a hot snare. Incomplete resection. Resected tissue retrieved. Biopsied. - The examination was otherwise normal. Recommendation: - Discharge patient to home. - Resume previous diet. - Continue present medications. - Await pathology results. - Repeat colonoscopy at appointment to be scheduled incomplete polyp resection. - Refer to a telephone services sales representative at appointment to be scheduled. Procedure Code(s): --- Professional --- 91299, PT, Colonoscopy, flexible; with removal of tumor(s), polyp(s), or other lesion(s) by snare technique 18845, 59, Colonoscopy, flexible; with biopsy, single or multiple Diagnosis Code(s): --- Professional --- Z12.11, Encounter for screening for malignant neoplasm of colon D12.3, Benign neoplasm of transverse colon (hepatic flexure or splenic flexure) D12.0, Benign neoplasm of cecum CPT copyright 2017 [employer]. All rights reserved. The codes documented in this report are preliminary and upon medical billing coder review may be revised to meet current compliance requirements. MD Margarita Garcia MD 08/20/2022 3:18:17 PM This report has been signed electronically. Number of Addenda: 0 Note Initiated On: 08/20/2022 1:31 PM
--- NOTE | 2022-08-20 15:19 | OP.CCLET_ITS ---
08/20/2022 Lam Munoz Re : Colonoscopy procedure for Wilbur Nieves Dear Alexander This procedure was performed on Saturday, August 20, 2022. My impressions and recommendations are as follows: Impressions : - Two 4 mm polyps in the proximal transverse colon, removed with a hot snare. Resected and retrieved. - One less than 5 mm polyp at the hepatic flexure, removed with a cold biopsy forceps. Resected and retrieved. - One 20 to 30 mm polyp at the ileocecal valve, removed with a hot snare. Incomplete resection. Resected tissue retrieved. Biopsied. - The examination was otherwise normal. Recommendations : - Discharge patient to home. - Resume previous diet. - Continue present medications. - Await pathology results. - Repeat colonoscopy at appointment to be scheduled incomplete polyp resection. - Refer to a student services advisor at appointment to be scheduled. My findings are described in the full procedure note, which is enclosed. If I can be of further assistance, please feel free to contact me at Doctor phone number(s): , Work: . Sincerely, MD Margarita Garcia MD 08/20/2022 3:18:17 PM This report has been signed electronically.
== END 2022-08-20 16:17 | disposition home or self-care (01) ==
LOC: SDC 10:58 → AC 11:00
PROVIDERS: PCP Family Medicine; Referring Provider Surgery; Visit Provider Surgery
PROC: 0DJD8ZZ Inspection of Lower Intestinal Tract, Via Natural or Artificial Opening Endoscopic (ICD-10-PCS; CPT 45378; principal; 2022-08-20 13:10)
DX: Z12.11 Encounter for screening for malignant neoplasm of colon (principal); Z87.891 Personal history of nicotine dependence; K21.9 Gastro-esophageal reflux disease without esophagitis; F41.9 Anxiety disorder, unspecified; Z97.2 Presence of dental prosthetic device (complete) (partial); D12.3 Benign neoplasm of transverse colon; D12.0 Benign neoplasm of cecum
CPT/HCPCS: 45385; 45380; 88305; J7120; J2405

== ENCOUNTER 2022-11-25 05:09 | Day surgery (SDC) | payer BC, SELFPAY ==
[2022-11-25 05:46] VITALS: BP 118/83; PULSE 73; RESP 16; TEMP 36.7; O2SAT 100; BMI 21.7
[2022-11-25] MEDS: Lactated Ringers 1,000 ML 15 ML IV (05:56)
--- NOTE | 2022-11-25 06:30 | COLBX_PTH ---
PATIENT: MIMI REGAN LOC: EN U#:[id number] AGE/SX: 62/M ROOM: RE11/25/[address]: Dr. Rowdy Hernandez DO : 1960 BED: DIS: 11/25/2022 SPEC #: [id number] RECD: 11/25/22 11:35 STATUS: DELMA DARLENE #: [id number] HALLIE: 11/25/22 06:[address]: Rowdy Hernandez DEPT: SURGICAL PATHOLOGY RECD BY: Mónica Zimmerman ENTERED: 11/25/22 12:03 SP TYPE: COLON BX OTHR DR: Charis Primary Care Phys Tissues: A - Cecum, NOS B - Sigmoid colon biopsy Procedures: Surgery Specimen Level IV HEADER OPERATION: Colonoscopy (MAC), polypectomy, electrohemostasis PRE-OP DIAGNOSIS: Incomplete colonoscopy TISSUE SUBMITTED: A ? Cecal polyp, B ? Sigmoid polyp MICROSCOPIC DIAGNOSIS A. Cecal polyp, polypectomy: Fragments of hyperplastic polyp with cautery artifacts. B. Sigmoid polyp, polypectomy: Tubulovillous adenoma. SENG:morena 11/26/2022 MICROSCOPIC DESCRIPTION Slides are reviewed. GROSS DESCRIPTION A - Received in fixative is one container labeled with the patient's name and designated cecal polyp. The specimen consists of a urbina-pink polyp measuring 0.5 x 0.5 x 0.3 cm. Multiple fragments of urbina soft tissue are also noted measuring in aggregate 0.5 x 0.2 x 0.1 cm. The specimen is totally submitted in one cassette. B - Received in fixative is one container labeled with the patient's name and designated sigmoid polyp. The specimen consists of a urbina-pink polyp measuring 0.6 x 0.6 x 0.5 cm. The polyp is bisected and submitted entirely in one cassette. / SENG:morena 11/25/2022 TC:1 CPT: 72656 x2
--- NOTE | 2022-11-25 06:33 | PCM.HP.STD ---
[facility] - General General Date of Admission: 11/25/22 Date of Service: 11/25/22 Chief Complaint: Incomplete colonoscopy HPI Narrative MIMI REGAN, is a 62 M who presents today for repeat colonoscopy. He underwent a colonoscopy a few months ago and had 10 polyps removed. One was very large in the cecum and cannot be completely removed. He comes back for repeat colonoscopy today. Overall is in fairly good health. [facility] Medical History (Updated 08/27/22 @ 08:40 by Padmini Dai) Anxiety Back pain Cardiology follow-up encounter Former smoker Gastric reflux History of arthritis History of broken collarbone History of colon polyps History of COVID-19 History of echocardiogram History of steroid therapy History of ulceration Injury of back Leg cramps Polyp of colon Wears dentures Wears glasses Home Medications omeprazole 10 mg capsule,delayed release 20 mg PO DAILY GERD 08/23/19 [History Last Taken 08/19/22] acetaminophen 500 mg tablet (Tylenol Extra Strength) 500 mg PO Q6H PRN Pain 07/09/22 [History Last Taken Unknown] simethicone 80 mg chewable tablet 80 mg PO QHS PRN STOMACH PAIN 11/20/22 [History Last Taken Unknown] Allergy/AdvReac Type Severity Reaction Status Date / Time oxycodone [From Percocet] AdvReac HALLUCINATI Verified 11/25/22 05:46 ON Surgical History (Updated 11/20/22 @ 12:21 by Roxie Christianson) History of lumbar fusion History of mandibular surgery History of open reduction and internal fixation (ORIF) procedure Hx of colonoscopy Social History Smoking Status: Former smoker alcohol intake: never ROS Constitutional Constitutional: Denies body ache(s), fatigue, fever(s) or weakness Eyes Eyes: Denies change in vision, diplopia or eye pain ENT HEENT: Denies abnormal hearing, disequillibrium, dizziness, dysphagia, headache(s) or hearing loss Cardiovascular Cardiovascular: Denies abdominal pain, chest pain, claudication, cyanosis, dizziness, dyspnea at rest, dyspnea on exertion or irregular heart rhythm Respiratory/Chest Respiratory/Chest: Denies dyspnea on exertion or shortness of breath at rest Gastrointestinal Gastrointestinal: Denies abdominal pain, diarrhea or dysphagia Musculoskeletal Musculoskeletal: Reports back pain Vital Signs Vital Signs Vital Signs: 11/25/22 05:46 11/25/22 05:46 Temperature 98.0 F Temperature Source Temporal Pulse Rate 73 Respiratory Rate 16 Respiratory Pattern Normal Blood Pressure 118/83 H Blood Pressure Mean 94 Blood Pressure Source Monitor Blood Pressure Position Semi-Fowlers Blood Pressure Location Right Arm Pulse Ox 100 Oxygen Delivery Method Room Air Weight Weight: 135 lb Body Mass Index (BMI) 21.7 Physical Exam Const alert, oriented x3 and no apparent distress HEENT normocephalic and head/scalp atraumatic Resp normal respiratory effort Cardio regular rate GI soft to palpation and non-tender; Negative for non-distended Palpation: Negative for guarding Extremity no clubbing, cyanosis or edema Neuro CN's II-XII intact bilaterally Psych mental status grossly normal Assessment & Plan Assessment/Plan (1) Encounter for screening for malignant neoplasm of colon: PLAN: He was explained alternatives, risk, benefits including outstanding bleeding, infection, sepsis, perforation, need for emergency or . He will have an ASA of 2.
[2022-11-25 07:00] VITALS: BP 118/83; BP 90/68; PULSE 66; RESP 16; TEMP 36.1; O2SAT 97
[2022-11-25 07:05] VITALS: BP 102/73; BP 118/83; PULSE 64; RESP 16; O2SAT 97
--- NOTE | 2022-11-25 07:05 | OP.CCLET_ITS ---
11/25/2022 Lam Munoz Re : Colonoscopy procedure for Wilbur Nieves Dear Alexander This procedure was performed on Friday, November 25, 2022. My impressions and recommendations are as follows: Impressions : - Two 1 to 2 mm polyps in the sigmoid colon and in the cecum, removed with a hot snare. Resected and retrieved. Treated with a heater probe. Recommendations : - Repeat colonoscopy in 3 years for surveillance. - Continue present medications. - No aspirin, ibuprofen, naproxen, or other non-steroidal anti-inflammatory drugs for 7 days after polyp removal. My findings are described in the full procedure note, which is enclosed. If I can be of further assistance, please feel free to contact me at . Sincerely, Rowdy Hernandez, 11/25/2022 7:04:51 AM This report has been signed electronically.
--- NOTE | 2022-11-25 07:05 | OP.COLON_ITS ---
Patient Name: Wilbur Nieves Procedure Date: 11/25/2022 6:11 AM Date of : 1960 Age: 62 Procedure: Colonoscopy Indications: High risk colon cancer surveillance: Personal history of colonic polyps Providers: Rowdy Hernandez DO Referring MD: Rowdy Hernandez DO Medicines: Monitored Anesthesia Care Patient Profile: This is a 62 year old male. Refer to note in patient chart for documentation of history and physical. Last Colonoscopy: within the past year. Complications: No immediate complications. Procedure: Pre-Anesthesia Assessment: - Prior to the procedure, a History and Physical was performed, and patient medications and allergies were reviewed. The risks and benefits of the procedure and the sedation options and risks were discussed with the patient. All questions were answered and informed consent was obtained. Patient identification and proposed procedure were verified by the physician in the pre-procedure area. Mental Status Examination: alert and oriented. Airway Examination: normal oropharyngeal airway and neck mobility. Respiratory Examination: clear to auscultation. Prophylactic Antibiotics: The patient does not require prophylactic antibiotics. Prior Anticoagulants: The patient has taken no previous anticoagulant or antiplatelet agents. After reviewing the risks and benefits, the patient was deemed in satisfactory condition to undergo the procedure. The anesthesia plan was to use monitored anesthesia care (MAC). Immediately prior to administration of medications, the patient was re-assessed for adequacy to receive sedatives. The heart rate, respiratory rate, oxygen saturations, blood pressure, adequacy of pulmonary ventilation, and response to care were monitored throughout the procedure. The physical status of the patient was re-assessed after the procedure. After I obtained informed consent, the scope was passed under direct vision. Throughout the procedure, the patient's blood pressure, pulse, and oxygen saturations were monitored continuously. The Colonoscope was introduced through the anus and advanced to the cecum, identified by appendiceal orifice and ileocecal valve. The colonoscopy was performed without difficulty. The patient tolerated the procedure well. The quality of the bowel preparation was adequate. Scope In: 6:38:54 AM Scope Out: 6:56:17 AM Total Procedure Duration Time 0 hours 17 minutes 23 seconds Findings: Two sessile polyps were found in the sigmoid colon and cecum. The polyps were 1 to 2 mm in size. These polyps were removed with a hot snare. Resection and retrieval were complete. Verification of patient identification for the specimen was done. Coagulation for hemostasis using heater probe was successful. Estimated blood loss was minimal. Impression: - Two 1 to 2 mm polyps in the sigmoid colon and in the cecum, removed with a hot snare. Resected and retrieved. Treated with a heater probe. Recommendation: - Repeat colonoscopy in 3 years for surveillance. - Continue present medications. - No aspirin, ibuprofen, naproxen, or other non-steroidal anti-inflammatory drugs for 7 days after polyp removal. Procedure Code(s): --- Professional --- 01200, Colonoscopy, flexible; with removal of tumor(s), polyp(s), or other lesion(s) by snare technique CPT copyright 2017 [employer]. All rights reserved. The codes documented in this report are preliminary and upon student services advisor review may be revised to meet current compliance requirements. Rowdy Hernandez DO 11/25/2022 7:04:51 AM This report has been signed electronically. Number of Addenda: 0 Note Initiated On: 11/25/2022 6:11 AM
[2022-11-25 07:10] VITALS: BP 109/78; BP 118/83; PULSE 64; RESP 16; O2SAT 97
[2022-11-25 07:15] VITALS: BP 116/82; BP 118/83; PULSE 58; RESP 16; TEMP 36.7; O2SAT 100
[2022-11-25 07:30] VITALS: BP 118/83
== END 2022-11-25 07:54 | disposition home or self-care (01) ==
LOC: EN 05:11 → AC 05:13
PROVIDERS: Referring Provider Internal Medicine Gastroenterology; Visit Provider Internal Medicine Gastroenterology
PROC: 0DJD8ZZ Inspection of Lower Intestinal Tract, Via Natural or Artificial Opening Endoscopic (ICD-10-PCS; CPT 45378; principal; 2022-11-25 06:25)
DX: Z12.11 Encounter for screening for malignant neoplasm of colon (principal); Z86.16 Personal history of COVID-19; Z86.010 Personal history of colon polyps; Z87.891 Personal history of nicotine dependence; D12.5 Benign neoplasm of sigmoid colon
CPT/HCPCS: 45385; 88305; J7120; J2405

== ENCOUNTER 2023-04-25 20:10 | Emergency (ER) | payer OTHER, BC, SELFPAY ==
[2023-04-25 20:11] VITALS: BP 136/90; PULSE 78; RESP 16; TEMP 36.1; O2SAT 99; BMI 23.7
--- NOTE | 2023-04-25 20:35 | RAD_ITS ---
INDICATION: injury EXAMINATION/TECHNIQUE: X-RAY - LEFT XR Hand Min 3 Views 3 VIEWS COMPARISON: None. FINDINGS: SOFT TISSUES: No soft tissue swelling or gas. No radiopaque foreign body. BONES/JOINTS: No acute fracture or malalignment. Preservation of the joint space and no degenerative bony proliferative changes. No sclerotic or destructive changes observed. RAD/Hand Min 3 Views IMPRESSION: Negative. Electronically Signed: Vazquez Rivas DO at 20:48 EDT ,
[2023-04-25] MEDS: Lidocaine 1% /Epi 1:100 (20ml) 20 ML Vial INFILT (20:43)
[2023-04-25] MEDS: Diphth,Pertuss(Acell),Tet Vac 0.5 ML Vial IM (20:44)
--- NOTE | 2023-04-25 21:15 | EDS_ITS ---
HPI <STANISLAW Oleary - Last Filed: 04/25/23 21:22> History of Present Illness Chief Complaint: Laceration Narrative Narrative: Patient is a 63-year-old male with no significant ago history who presents to the emergency department for laceration of left hand. 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 He states he is concerned because he did almost as like a stabbing motion. He is unsure of his last tetanus vaccination. PFSH <STANISLAW Oleary - Last Filed: 04/25/23 21:22> [facility] Medical History (Updated 04/25/23 @ 21:22 by STANISLAW Oleary) Anxiety Back pain Cardiology follow-up encounter Former smoker Gastric reflux History of arthritis History of broken collarbone History of colon polyps History of COVID-19 History of echocardiogram History of steroid therapy History of ulceration Injury of back Leg cramps Polyp of colon Wears dentures Wears glasses Home Medications omeprazole 10 mg capsule,delayed release 20 mg PO DAILY GERD 08/23/19 [History Last Taken 08/19/22] acetaminophen 500 mg tablet (Tylenol Extra Strength) 500 mg PO Q6H PRN Pain 07/09/22 [History Last Taken Unknown] simethicone 80 mg chewable tablet 80 mg PO QHS PRN STOMACH PAIN 11/20/22 [History Last Taken Unknown] Allergy/AdvReac Type Severity Reaction Status Date / Time oxycodone [From Percocet] AdvReac HALLUCINATI Verified 11/25/22 05:46 ON Surgical History (Updated 11/20/22 @ 12:21 by Roxie Christianson) History of lumbar fusion History of mandibular surgery History of open reduction and internal fixation (ORIF) procedure Hx of colonoscopy Social History Smoking Status: Former smoker alcohol intake: never ROS <STANISLAW Oleary - Last Filed: 04/25/23 21:22> ROS ED ROS Narrative Constitutional: Negative for fever, chills, weight loss, weakness Eyes: Negative for vision loss, vision change, double vision ENT: Negative for any sore throat, ear pain, congestion Cardiovascular: Negative for any chest pain, tightness, palpitations Respiratory: Negative for any cough, sputum production, hemoptysis, dyspnea, dyspnea on exertion, orthopnea Gastrointestinal: Negative for any abdominal pain, nausea, vomiting, diarrhea, constipation, blood in stool, blood in vomit : Negative for any urinary frequency, dysuria, retention, blood in urine Muscle skeletal: Negative for any muscle joint pain, stiffness, myalgias, arthralgias, neck pain, back pain Neurological: Negative for any headache, syncope, numbness or tingling, dizziness Skin: Negative for any rashes, lumps, itching, abrasions. Positive for laceration to the left hand Psychiatric: Negative for any depression, anxiety, stress, suicidal ideation, homicidal ideation Hematologic: Negative for any easy bruising, excessive bruising, easy bleeding Allergies: Negative for any eczema, hives, rash EXAM <STANISLAW Oleary - Last Filed: 04/25/23 21:22> Physical Exam Narrative Exam Narrative: Vital signs reviewed. Extremities: No peripheral edema, no signs of gross trauma or deformity. Active full range of motion of all extremities. Patient has a 1.5 cm the palmar aspect of left hand. No tendon involvement. Patient is able to flex and extend all hand. Patient make a fist. Posterior pulse. No neurological focal deficit. Neuro: Cranial nerves II through XII intact, no focal neurological deficits. Skin: Clean dry and intact with no rash, purpura, petechiae, vesicles or pus tules. Backs/flank: No CVA tenderness, no midline spinal tenderness, no deformity. Psych: Normal mood and affect. No SI, HI or acute psychosis. Const Vital Signs: 04/25/23 20:11 Temperature 96.9 F L Temperature Source Temporal Pulse Rate 78 Respiratory Rate 16 Blood Pressure 136/90 H Blood Pressure Mean 105 Pulse Ox 99 Oxygen Delivery Method Room Air Positive well nourished and well developed General Appearance ED: well developed <Dr. Arjun Nevarez MD - Last Filed: 04/25/23 21:25> Physical Exam Const Vital Signs: 04/25/23 20:11 Temperature 96.9 F L Temperature Source Temporal Pulse Rate 78 Respiratory Rate 16 Blood Pressure 136/90 H Blood Pressure Mean 105 Pulse Ox 99 Oxygen Delivery Method Room Air MDM <STANISLAW Oleary - Last Filed: 04/25/23 21:22> MDM Radiography Diagnostic Testing: Clinical Impression(s) from Imaging Studies Hand X-Ray 04/25/23 20:35 IMPRESSION: Negative. Electronically Signed: Vazquez DO Rob at 20:48 EDT , Treatment and Re-Evaluation :: Patient appears generally well, patient appears nontoxic, vital signs are stable. Patient presents to the emergency department for a laceration to the left hand. This is approximate 1.5 cm. X-ray was ordered concerning for any os seous involvement, this was negative. Patient will have this laceration sutured. Patient be able return to work on Friday. All proper paperwork filled out. Patient's tetanus vaccination was updated today. All questions answered, patient stable for discharge. We will have the sutures removed in 10 days. <Dr. Arjun Nevarez MD - Last Filed: 04/25/23 21:25> [facility] Narrative Medical decision making narrative: I have personally performed a face to face assessment of the patient and have reviewed the LIZ Note. I performed a substantive portion of the visit including all aspects of the following. My horton findings include: History is remarkable for laceration palm of his left hand. He is right-hand dominant. Denies paresthesia, anesthesia motors. Tetanus is unknown. Exam is laceration palm left hand over the flexor tendon of the left ring finger. Median, radial ulnar function intact. The flexor digitorum superficialis and flexor digitorum profundus are intact for the long, ring and little finger. Capillary fill is normal. Two-point discrimination is normal. Medical Decision Making patient is insistent that he hit the bone when he stabbed himself accidentally. X-ray was obtained there is no foreign body noted nervous or fracture on my independent review and interpretation of his film at 2031. 3 views were obtained. Other additions or changes: Wound was sutured by nurse practitioner under my supervision. Radiography Diagnostic Testing: Clinical Impression(s) from Imaging Studies Hand X-Ray 04/25/23 20:35 IMPRESSION: Negative. Electronically Signed: Vazquez Rivas DO at 20:48 EDT , Procedures <STANISLAW Oleary - Last Filed: 04/25/23 21:22> Lacerations Left hand laceration: Length: 0.59 in Depth: Skin Shape: Linear Prep: Sterile Conditions Laceration repair: Irrigated and Lidocaine Irrigated (ml): 200 Number of Sutures/[place]: 3 Suture Information: Ethilon, Simple and 5-0 Comment: Sterile gloves, sterile drapes used, patient tolerated well Discharge Plan Triage Chief Complaint: Laceration ED Midlevel Provider: Igor Bo ED Provider: Arjun Nevarez Dx/Rx/DC Orders Clinical Impression: Hand laceration Instructions: ED Laceration Hand with ... Prescriptions: No Action omeprazole 10 mg capsule,delayed release(DR/EC) 20 mg PO DAILY acetaminophen [Tylenol Extra Strength] 500 mg tablet 500 mg PO Q6H PRN (Reason: Pain) simethicone [Gas-X] 80 mg Tablet,Chewable 80 mg PO QHS PRN (Reason: STOMACH PAIN) Primary Care Provider: Care Physician,No Primary Referrals: Care Physician,No Primary [Primary Care Provider] - Clinic,NOW [Non-Staff] - Activity Restrictions/Additional Instructions: Please have the sutures removed in 10 days Disposition Disposition: Home, Self Care
[2023-04-25 21:30] VITALS: BP 132/65; PULSE 70; RESP 16
== END 2023-04-25 21:32 | disposition home or self-care (01) ==
PROVIDERS: Emergency Provider Emergency Medicine; Visit Provider Emergency Medicine
DX: S66.125A Laceration of flexor muscle, fascia and tendon of left ring finger at wrist and hand level, initial encounter (principal); Z87.891 Personal history of nicotine dependence; S61.419A Laceration without foreign body of unspecified hand, initial encounter; Y99.0 Civilian activity done for income or pay; W26.8XXA Contact with other sharp object(s), not elsewhere classified, initial encounter; Z86.16 Personal history of COVID-19; K21.9 Gastro-esophageal reflux disease without esophagitis; Z23 Encounter for immunization
CPT/HCPCS: 12001; 73130; 90471; 90715; 99284

== ENCOUNTER → 2023-12-11 | Outpatient (CLI) | payer BC, SELFPAY ==
--- NOTE | 2023-12-11 12:37 | CT_ITS ---
STUDY: CT PELVIS WITHOUT CONTRAST REASON FOR EXAM: Male, 63 years old. Left inguinal pain RADIATION DOSAGE (If Supplied By Facility): CTDIvol = ( 27.17 ) mGy, DLP = ( 1132.04 ) mGycm TECHNIQUE: Transaxial imaging of the pelvis was performed with oral contrast, and without intravenous administration of contrast material. Multiplanar coronal and sagittal images were reformatted. Individualized dose optimization techniques were used for this CT. COMPARISON: None. FINDINGS: Normal urinary bladder. Prostatic enlargement. The prostate measures 4.6 cm 6.1 cm. This causes indentation of the bladder base. Normal visualized small intestine. Normal visualized colon. There is no pelvic fluid. There is no pelvic mass lesion or lymphadenopathy. Normal visualized pelvic arteries. Moderate-sized left inguinal hernia containing fat. Prior fusion at the L5-S1 level with prosthetic disc. CT/Pelvis without IV Contrast IMPRESSION: Moderate-sized left inguinal hernia containing fat. Prostatic enlargement with indentation of the bladder base. Electronically Signed: Antony Whitfield MD at 13:40 EDT ,
== END | disposition home or self-care (01) ==
LOC: CT 12:37
PROVIDERS: PCP Family Medicine; Referring Provider Surgery; Visit Provider Surgery
DX: R10.32 Left lower quadrant pain (principal)
CPT/HCPCS: 72192

== ENCOUNTER 2024-01-01 05:44 | Day surgery (SDC) | payer BC, SELFPAY ==
--- NOTE | 2023-12-25 10:17 | EKG12_ITS ---
Test Reason : PRE-OP Blood Pressure : / mmHG Vent. Rate : 069 BPM Atrial Rate : 069 BPM P-R Int : 148 ms QRS Dur : 090 ms QT Int : 400 ms P-R-T Axes : 045 020 024 degrees QTc Int : 428 ms Normal sinus rhythm Normal ECG Confirmed by KINJAL OVIEDO, KAHLIL ([id number]), international editorial producer HOMER CARRION ([id number]) on 12/29/2023 10:19:19 AM Referred By: Margarita Corral Confirmed By:RAMIN LAYTON MD
[2023-12-25 11:00] LABS: Hematocrit 47.4 % (40-54); Hemoglobin 15.7 g/dL (13.0-16.5); Mean Corp Hgb Conc 33.1 g/dL (32-36); Mean Corpuscular Hgb 30.8 pg (27.0-32.0); Mean Corpuscular Volume 92.9 fL (80-94); Mean Platelet Vol. 10.4 fl (6.2-12.0); Platelet Count 197 K/mm3 (150-450); RBC Distribution Width CV 12.1 % (11.6-14.6); RBC Distribution Width SD 41.3 fl (35.1-43.9); White Blood Count 5.8 K/mm3 (4.4-11.0)
[2023-12-25 11:36] LABS: Anion Gap 4 (5-15); BUN 21 mg/dL (7-18); BUN/Creat Ratio 23.3 RATIO (10-20); Calcium,Total 9.1 mg/dL (8.5-10.1); Chloride 107 mmol/L (98-107); EST Glomerular Filtration Rate 90 mL/min (>60); Est Glom Filt Rate - Afr Amer 109 mL/min (>60); Glucose 97 mg/dL (74-106); Sodium Level 141 mmol/L (136-145)
[2024-01-01] VITALS (11 sets, daily range): BP systolic 127–158; BP diastolic 74–92; PULSE 56–91; RESP 12–18; TEMP 36.1–37.1; O2SAT 92–100; BMI 23.5
[2024-01-01] MEDS: Lactated Ringers 1,000 ML 15 ML IV (06:37)
--- NOTE | 2024-01-01 07:09 | PCM.HP.BLA ---
History and Physical Date of Admission: 01/01/24 Date of Service: 12/22/23 MR#: [id number] Acct: [id number] Name: MIMI REGAN Rep #: [id number] : 1960 Provider: Dr. Margarita Corral MD Age/Sex: 63/M Location: [facility] Status: Signed Intake Vital Signs 12/08/2408:43 12/21/2408:54 Height 5 ft 6 in Weight: 143 lb BMI 23.1 BP 132/76 H 122/80 H Blood Pressure Location Rt brachial Rt brachial Position Sitting Sitting Respiration 16 17 Pulse 87 Pulse Source Monitor Pulse Oximetry (%) 95 Oxygen Delivery Method room air Intake Visit Reasons: discuss surgery options Chief Complaint: inguinal hernia/discuss surgery options Is patient in pain?: Yes Allergies oxycodone [From Percocet] Adverse Reaction (Verified 12/22/23 09:55) HALLUCINATION Medications omeprazole 10 mg capsule,delayed release 20 mg PO DAILY GERD 08/23/19 [History Confirmed 12/22/23] acetaminophen 500 mg tablet (Tylenol Extra Strength) 500 mg PO Q6H PRN Pain 07/09/22 [History Confirmed 12/22/23] PFSH Medical History (Updated 12/24/23 @ 07:[address] Margarita Corral MD) Anxiety Back pain Cardiology follow-up encounter Former smoker Gastric reflux History of arthritis History of broken collarbone History of colon polyps History of COVID-19 History of echocardiogram History of steroid therapy History of ulceration Injury of back Leg cramps Polyp of colon Wears dentures Wears glasses Surgical History History of lumbar fusion History of mandibular surgery History of open reduction and internal fixation (ORIF) procedure Hx of colonoscopy Social History Smoking Status: Former smoker alcohol intake: never HPI HPI HPI: 63-year-old male presents for discussion of CT pelvis and left inguinal hernia. Patient states area has been more painful and has been out currently. CT abdomen pelvis did show a left inguinal hernia-patient is here to discuss surgery. Patient is still off work due to pain/inguinal hernia. ROS General General: Yes fatigue; No weight change, appetite, colon cancer or breast cancer HEENT HEENT: No difficulty swallowing, eye injury, eye surgery, swollen glands or hoarseness Endo Endocrine: No thyroid disease, diabetes mellitus, thyroid cancer, Hair loss, heat intolerance or cold intolerance Skin Skin: No rash or changing moles Musc Musculoskeletal: Yes back problems and arthritis; No rheumatoid arthritis, gout or joint pain Cardio Cardiovascular: No murmur, pacemaker, heart disease, atrial fibrillation, high blood pressure, heart attack, heart stent, palpitations, shortness of breat with exertion or chest pain Psych Psychiatric: No depression, anxiety or hearing voices Resp Respiratory: No shortness of breath, No sleep apnea, No cough, No COPD, No asthma, No emphysema and No wheezing Gastro Gastrointestinal: No abdominal pain, No nausea or vomiting, No diarrhea, No constipation, No blood in stool, Yes acid reflux, No hemorrhoids, No ulcers, No gallbladder problem and No black,tarry stools Javon Hematologic: No blood thinners, No blood disorders, No bleeding, No anemia and No blood clots Neuro Neurologic: No numbness and No tingling Exam Const General: cooperative, healthy appearing, comfortable and no acute distress [facility] Head: normocephalic and atraumatic Neck Neck: supple Resp Effort & Inspection: normal respiratory effort Cardio Rate: regular rate GI Inspection: non-distended Palpation: soft, no hernias and nontender Other: Left inguinal hernia? reducible Skin General: no rashes or lesions noted Neuro General: CN's II-XI intact bilaterally Extrem General: normal to inspection Psych Mental Status: mental status grossly normal Attitude: cooperative Assessment and Plan Assessment and Plan (1) Left inguinal hernia: Status: Acute Plan Plan to do a laparoscopic left inguinal hernia repair with mesh?did also discuss open repair with patient he elected for laparoscopic. Reviewed the procedure with the patient including the risks, including but not limited to infection, bleeding, paresthesia, chronic pain, injury to small bowel or contents of the spermatic cord, hernia, and recurrence. All questions were answered. Margarita Corral M.D. Pager: [phone] [facility] [address] [place] [address], [address] [place] [address] Office: [phone] Coding Level of Care Code Off vis,est,level 3 Diagnoses Left inguinal hernia K40.90 Clinical Quality Measures High Blood Pressure Screening/Follow Up High Blood Pressure follow-up Instructions: Recommended Blood Pressure Follow-Up Interventions: *Normal BP: No follow-up required for SBP < 120 mmHg and DBP < 80 mmHg: *Elevated BP: Patients with SBP of 120-129 mmHg and DBP < 80 mmHg: *Referral to Alternate/Primary Care Health Glove Machine Operator OR * Follow-up with rescreen in 2 to 6 months AND recommend nonpharmacologic interventions * First Hypertensive BP Reading: Patients with one elevated reading of SBP >=130 mmHg OR DBP >= 80 mmHg: *Referral to Alternate/Primary Care Health Professional OR *Follow-up with rescreen in >1 day and < 4 weeks AND recommend nonpharmacologic interventions *Second Hypertensive BP Reading: *Second Hypertensive BP Reading:Patients with second elevated reading of SBP of 130-139 mmHg or DBP of 80-89 mmHg (and not SBP >=140 or DBP >=90): * Referral to Alternate/Primary Care Health Glove Machine Operator OR *Nonpharmacological Intervention AND reassessment in 2-6 months AND an order for a laboratory test or ECG for hypertension *Second Hypertensive BP Reading: SBP >=140 or DBP >=90 *Referral to Alternate/Primary Care Healthcare Professional OR *Nonpharmacological Intervention AND BP lowering medication AND reassessment within 4 weeks AND an order for a laboratory test or ECG for hypertension BP Second Hypertensive Readings: For both questions related to the second hypertensive readings, orders for lab/ECG need to be placed in addition to responding to the non-pharmacological and follow up questions. 12/24/23 0744 <Electronically signed by Margarita Corral MD> Date Margarita Corral MD
[2024-01-01] MEDS: Cefazolin 2 GM in 0.9% Normal Saline (100mL Bag) 100 ML IV (07:19)
[2024-01-01] MEDS: Bupivacaine Mpf 0.5% 30 ML VIAL (08:48)
--- NOTE | 2024-01-01 08:49 | PCM.OPRPT ---
Report of Operation Date of Procedure: 01/01/24 Pre-Operative Diagnosis: Left inguinal hernia Post-Operative Diagnosis: Left indirect inguinal hernia Surgery/Procedure Performed:: Laparoscopic left inguinal hernia repair with mesh Surgeon: Margarita Corral crayon molding machine operator: Arlette Edgar Type of Anesthesia: General/Supplemental Anesthesiologist: Sae Bryan Special Medications: Ancef 2 g IV x 1 Specimen's removed: None Estimated Blood Loss (mL): 15 cc Description of Procedure: Indications: 63-year-old male presented with left inguinal hernias which were symptomatic. Laparoscopic left inguinal hernia repair with mesh was elected patient was agreeable. Description of procedure: Patient was brought to operating room placed supine operative table. Timeout was completed verifying correct patient, procedure, site, positioning, special, prior to beginning procedure. General anesthesia was induced. East catheter was placed. Patient's arms were tucked and padded appropriately. Midline supraumbilical incision was made with a 15 blade scalpel. The fascia was elevated and incised. Entry into the abdomen was confirmed visually. The [place] trocar was placed. Laparoscope was placed. Verifying no injury during initial trocar placement. Patient was placed in Trendelenburg position. Two 5 mm trochars were placed lateral to the rectus sheath under direct visualization. Both the inguinal regions were inspected and left indirect hernia was seen with omentum which was easily removed. The median umbilical ligament was divided sharply with electrocautery. Peritoneum was incised with the endoscopic scissors along a line 2 cm above the superior edge of the hernia defect extending from the median umbilical ligament to anterior superior iliac spine. Peritoneal flap was mobilized inferiorly using blunt and sharp dissection. The inferior epigastric vessels were exposed and symphysis pubis and identified. Devin's ligament was identified. Dissection was continued inferiorly to the iliopubic track with care taken to avoid injury to the femoral branch of the genitofemoral nerve and lateral femoral cutaneous nerve. The cord structures were parietalized. The indirect hernia sac was noted and mobilized from the cord structures and reduced into the peritoneal cavity. A large size Bard 3D max mesh left was used. The mesh was rolled longitudinally into a compact cylinder and passed through the trocar. The cylinder was placed along the inferior aspect of the working space and unrolled into place to completely cover the direct, indirect and femoral spaces. The mesh was secured in place medially to Devin's ligament using the secure strap as well as to the anterior abdominal wall. Care was taken to avoid the inferolateral triangle containing iliac vessels and genital nerves. The peritoneal flap was closed over mesh and secured with tacks in similar positions of safety using the SecureStrap. After ensuring adequate hemostasis, the trochars were removed and pneumoperitoneum allowed to escape. The supraumbilical trocar incision was closed with a 0 Vicryl figure of 8 suture. The skin was closed with 4-0 Monocryl interrupted sutures and Steri-Strips. Patient's testicles are also confirmed in the scrotum bilaterally. Patient tolerated procedure well was taken to the postanesthesia care unit in stable condition. Grafts/Implants Used: Left large Bard 3D max lot [id number] REF [id number] Complications none
--- NOTE | 2024-01-01 08:56 | DCINST_ITS ---
Discharge Instructions Diet Discharge Diet: Light diet - advance as tolerated Activity Discharge Activity: May Not Drive (while taking narcotic pain medications.) May shower in (days): 1 Lifting Restrictions: no lifting >20 lbs x 2 wks, no strenuous exercise for 4 wks Additional Activity Instructions:: Recommend wearing scrotal support?boxer briefs or jockstrap. Dressing / Incision Call your doctor if your incision/area has: Continuous Slow Oozing, Sudden Increased Bleeding, Increased Pain/ Swelling, Increased Redness, Foul Smelling Discharge and Swelling at the incision site Call your doctor if you observe: Fever of 101 or Higher Remove Dressing in: 2 days Cleanse incision/area with: Soap & Water Additional Dressing/Incision Instructions:: Steri-Strips will fall off in 7 to 10 days, if they do not fall off okay to remove after 10 days. Follow Up Care Please Follow Up With: Margarita Corral MD When: Call the office for a follow-up appointment 2 weeks; after 5 PM and on the weekends call [phone] with any concerns. Test Results: Test results from this visit will be discussed in further detail at your follow- up appointment, if applicable. Discharge Plan Admission Attending Provider: Margarita Corral Primary Care Provider: Dm Dave Discharge Orders/Prescriptions Prescriptions: New tramadol 50 mg tablet 50 mg PO Q6H PRN (Reason: pain) 3 Days Qty: 14 0RF Continued omeprazole 10 mg capsule,delayed release(DR/EC) 20 mg PO DAILY acetaminophen [Tylenol Extra Strength] 500 mg tablet 500 mg PO Q6H PRN (Reason: Pain) fluticasone propionate 50 mcg/actuation spray,suspension 1 spray INTRANASAL DAILY PRN PRN (Reason: allergy symptoms) Patient Comments: USE 2 SPRAYS INTO EACHCNOSTRIL 2 TIMES A DAY FOR 2 WEEKS, THEN USE ONCE DAILY Referrals / Follow Up: Dm Dave MD [Primary Care Provider] - Disposition Disposition (needs filled in before D/C Order can be placed): Home, Self Care
[2024-01-01] MEDS: traMADol 50 MG Tablet PO (10:41)
== END 2024-01-01 13:53 | disposition home or self-care (01) ==
LOC: SDC 05:48 → AC 06:14
PROVIDERS: Anesthesiology; PCP Family Medicine; Referring Provider Surgery; Visit Provider Surgery
PROC: (CPT 49650; principal; 2024-01-01 07:10)
DX: K40.90 Unilateral inguinal hernia, without obstruction or gangrene, not specified as recurrent (principal); Z86.16 Personal history of COVID-19; Z87.891 Personal history of nicotine dependence; K21.9 Gastro-esophageal reflux disease without esophagitis; Z86.010 Personal history of colon polyps; Z98.1 Arthrodesis status
CPT/HCPCS: 49650; 00752; 36415; 80048; 85027; 93005; J7120; C1760; C1781; J2405

== ENCOUNTER 2024-01-01 20:58 | Emergency (ER) | payer BC, SELFPAY ==
[2024-01-01 20:58] VITALS: BP 137/92; PULSE 109; RESP 16; TEMP 36.6; O2SAT 97; BMI 24.0
--- NOTE | 2024-01-01 21:23 | EDS_ITS ---
HPI History of Present Illness Chief Complaint: Complaint Detail of Chief Complaint: Unable to urinate after having a left inguinal hernia repair done today. Informant: patient and spouse/S.O. Pain Onset: Today Context: Gradual Onset Timing: Continuous Current Severity: Moderate Maximum Severity: Moderate Narrative Narrative: 63-year-old male history of reflux. Never had any bladder or prostate surgeries or issues. Recently no hematuria or dysuria. He had left inguinal hernia repair surgery done today by Dr. Lianne hopkins. It was laparoscopically placed mesh. He has been unable to urinate since the surgery. Recently he has been urinating fine. No hematuria. No dysuria. No difficulty initiating his stream. Prior similar symptoms: No Recent Illness/Hospitalization: No PFSH PFSH Medical History Anxiety Back pain Cardiology follow-up encounter Former smoker Gastric reflux History of arthritis History of broken collarbone History of colon polyps History of COVID-19 History of echocardiogram History of edema History of ulceration Injury of back Leg cramps Polyp of colon Shortness of breath on exertion Wears dentures Wears glasses Home Medications omeprazole 10 mg capsule,delayed release 20 mg PO DAILY GERD 08/23/19 [History Last Taken 01/01/24] acetaminophen 500 mg tablet (Tylenol Extra Strength) 500 mg PO Q6H PRN Pain 07/09/22 [History Last Taken 12/31/23] fluticasone propionate 50 mcg/actuation nasal spray,suspension 1 spray in tranasal DAILY PRN PRN allergy symptoms 12/25/23 [History Last Taken 12/31/23] tramadol 50 mg tablet 50 mg PO Q6H PRN pain 3 days #14 tabs 01/01/24 [Rx Last Taken Unknown] Allergy/AdvReac Type Severity Reaction Status Date / Time oxycodone [From Percocet] AdvReac HALLUCINATI Verified 01/01/24 21:00 ON Surgical History History of lumbar fusion History of mandibular surgery History of open reduction and internal fixation (ORIF) procedure Hx of colonoscopy Social History Smoking Status: Former smoker alcohol intake: never ROS ROS ED ROS Narrative Denies recent illness. Review of Systems ROS Unobtainable: Denies due to encephalopathy Constitutional Constitutional ED: Denies chills or fever(s) Eyes Eyes: Denies blurry vision ENT ENT ED: Denies ear pain Cardiovascular Cardiovascular: Denies chest pain Respiratory/Chest Respiratory/Chest: Denies cough or dyspnea Gastrointestinal Gastrointestinal: Denies abdominal pain Genitourinary Genitourinary ED: Denies dysuria or hematuria Musculoskeletal Musculoskeletal: Denies arthralgias or back pain Integumentary Denies abscess or rash Neurologic Neurologic: Denies headache(s) Psychiatric Psychiatric: Denies anxiety or depression Endocrine Endocrinology: Denies polydipsia or polyphagia Hematologic/Lymphatic Hematologic/Lymphatic: Denies easy bleeding or easy bruising Allergic/Immunologic Allergic/Immunologic ED: Denies mouth swelling, tongue swelling or urticaria EXAM Physical Exam Narrative Exam Narrative: 63-year-old male no acute distress vital signs stable afebrile. Prior to me entering the room the nurses are replaced a 16 [place] catheter. He was already showing great relief. H EENT exam unremarkable. Lungs clear. Heart regular rhythm no murmur rate about 100. Abdomen soft, nondistended normal brayan l sounds no peritoneal signs. He has 3 laparoscopic incisions currently are dry and clean. He has some mild bruising around his external area from the hernia repair surgery. He is circumcised. 16 [place] placed. No gross blood. No discoloration or sediment. Is not cloudy. It is clear yellow urine. Moving all 4 extremities. Nontender no edema. Patient is awake alert. Answering questions following commands. Const Vital Signs: 01/01/24 20:58 Temperature 98 F Temperature Source Temporal Pulse Rate 109 H Respiratory Rate 16 Blood Pressure 137/92 H Blood Pressure Mean 107 Pulse Ox 97 Oxygen Delivery Method Room Air Positive well nourished and well developed; Negative for obese, cachectic, contractures or unkempt General Appearance ED: well developed and NAD; Negative for unkempt, cachectic, contractures or pallor Nutritional Appearance: Negative for cachectic or obese HEENT Reports moist mucous membranes; Denies dry mucous membranes normocephalic and atraumatic; Negative for trauma or tenderness Mouth ED: No dry mucous membranes Mouth: No dry mucous membranes Eyes PERRL and EOMs intact bilaterally General Eye ED: Negative for pale conjunctiva, scleral icterus or other Neck no lymphadenopathy, supple and no JVD General: Negative for tenderness Resp normal respiratory effort and clear to auscultation bilaterally Effort and Inspection: Negative for retractions Auscultation: Negative for rales, rhonchi or wheezes Cardio regular rate, regular rhythm, S1 normal heart sound, S2 normal heart sound and no murmurs Rate: Negative for bradycardia or tachycardic Rhythm: Negative for abnormal rhythm Heart Sounds: Negative for other GI non-distended and no masses; Negative for non-tender GI Narrative: 3 laparoscopic incisions. Minimally tender. No distention. No peritoneal signs.Normal postop tenderness. Inspection: Negative for abdominal distention Auscultation: normoactive bowel sounds Palpation: soft and tender; Negative for guarding no CVA tenderness Back/Spine no CVA tenderness General Back: Negative for CVA tenderness Cervical Spine: Negative for cervical spine tenderness Thoracic Spine / Upper Back: Negative for thoracic spinal tenderness Lumbar Spine / Lower Back: Negative for lumbar spinal tenderness Extremity normal to inspection General Extremety ED: Negative for edema, pulses abnormal or tenderness General Extremity: Negative for edema or pulses abnormal Neuro oriented x3, CN's II-XII intact bilaterally, moves all extremities and no focal motor deficits Sensorium / Orientation: alert, oriented to person, oriented to place and oriented to time; Negative for orientation impaired, confused, lethargic or stuporous Motor Exam: strength 5/5 throughout Psych mental status grossly normal Appearance: Negative for unkempt Attitude: No agitated Mood & Affect: Negative for depressed, anxious or tearful Thought Process: normal thought process Thought Content: normal thought content Skin General Skin Exam: Negative for jaundice or pallor Lesions: no lesions Rashes: no rashes Trauma: Negative for abrasion or laceration MDM MDM MDM Narrative Medical decision making narrative: 63-year-old male after hernia repair surgery today was unable to urinate. Prior to having surgery today has had no difficulties urinating. No history of prostate problems. No gross hematuria or dysuria. Nurses placed a 16 [place] East catheter. We have had a return of about a liter of clear yellow urine. Bladder scan prior to East placement was 591. Patient be discharged home with a East catheter in place. Follow-up with either urology or his primary care physician. History & Record Review Discussion w/independent historian: Patient and Family Discharge Plan Triage Chief Complaint: Complaint ED Provider: Ihsan Alvarado Dx/Rx/DC Orders Clinical Impression: Acute urinary retention Instructions: ED Urinary Retention, Male Prescriptions: No Action omeprazole 10 mg capsule,delayed release(DR/EC) 20 mg PO DAILY acetaminophen [Tylenol Extra Strength] 500 mg tablet 500 mg PO Q6H PRN (Reason: Pain) fluticasone propionate 50 mcg/actuation spray,suspension 1 spray INTRANASAL DAILY PRN PRN (Reason: allergy symptoms) Patient Comments: USE 2 SPRAYS INTO EACHCNOSTRIL 2 TIMES A DAY FOR 2 WEEKS, THEN USE ONCE DAILY tramadol 50 mg tablet 50 mg PO Q6H PRN (Reason: pain) 3 Days Qty: 14 0RF Primary Care Provider: Dm Dave Referrals: Dm Dave MD [Primary Care Provider] - 3-5 Days Zaire Levi MD [Med Staff - Active Staff] - 3-5 Days Activity Restrictions/Additional Instructions: Plenty of fluids. If you start seeing a lot of blood and/or blood clots or the catheter is not draining return. This should be left in 3 to 5 days max. Follow-up with either your primary care physician or the urologist Dr. Armaan Levi they can remove it as long as you are doing well they do not need to put it back in. Sometimes after gets pulled then you have urinary retention again and have to replace it.
[2024-01-01 21:52] VITALS: BP 132/87; PULSE 89; RESP 16; TEMP 36.6; O2SAT 97
== END 2024-01-01 21:52 | disposition home or self-care (01) ==
LOC: ED 21:26
PROVIDERS: Emergency Provider Emergency Medicine; PCP Family Medicine; Visit Provider Emergency Medicine
DX: R33.9 Retention of urine, unspecified (principal); Z87.891 Personal history of nicotine dependence; K21.9 Gastro-esophageal reflux disease without esophagitis; Z79.899 Other long term (current) drug therapy
CPT/HCPCS: 99282

== ENCOUNTER → 2024-04-16 | Outpatient (CLI) | payer BC, SELFPAY ==
[2024-04-16 15:56] LABS: ALB/GLOB Ratio 1.3 RATIO (0.9-2.4); AST(SGOT) 13 U/L (15-37); Alanine Aminotransfer ALT/SGPT 21 U/L (16-61); Albumin, Serum 3.8 g/dL (3.2-5.0); Alkaline Phosphatase 105 U/L (45-117); Anion Gap 6 (5-15); BUN 15 mg/dL (7-18); BUN/Creat Ratio 16.9 RATIO (10-20); Calcium,Total 9.6 mg/dL (8.5-10.1); Chloride 109 mmol/L (98-107); Creatinine, Serum 0.89 mg/dL (0.70-1.30); EST Glomerular Filtration Rate 92 mL/min (>60); Est Glom Filt Rate - Afr Amer 111 mL/min (>60); Globulin 2.9 g/dL (2.2-4.2); Glucose 90 mg/dL (74-106); PSA,Total - Annual Screen 6.93 ng/mL (0.00-4.00); Protein, Total 6.7 g/dL (6.4-8.2); Sodium Level 141 mmol/L (136-145)
== END | disposition home or self-care (01) ==
LOC: MFPLAB 10:55
PROVIDERS: PCP Family Medicine; Visit Provider Family Medicine
DX: R53.83 Other fatigue (principal); G47.10 Hypersomnia, unspecified; Z12.5 Encounter for screening for malignant neoplasm of prostate
CPT/HCPCS: 36415; 80053; 84153; 84403; 84443; G0103

== ENCOUNTER → 2024-05-04 | Outpatient (CLI) | payer BC, SELFPAY | END | disposition home or self-care (01) | LOC: SL 12:18 | PROVIDERS: PCP Family Medicine; Referring Provider Family Medicine; Visit Provider Family Medicine | DX: G47.10 Hypersomnia, unspecified (principal) | CPT/HCPCS: 95806 ==